=== PATIENT | female | born 1985 | race Caucasian/White ===

== ENCOUNTER 2018-02-22 17:02 | Inpatient (IN) | payer BC ==
[2018-02-22] MEDS ORDERED: OBEPIDURAL* 250 ML EPIDURAL ONE (20:11)
[2018-02-22 20:12] LABS: ABS Basophils 0.1 10^3/ul (0-0.2); ABS Eosinophils 0.1 10^3/ul (0-0.6); ABS Lymphocytes 1.6 10^3/ul (1.0-4.8); ABS Monocytes 0.7 10^3/ul (0-0.8); ABS Neutrophils 13.4 10^3/ul (1.5-7.7); ABS Nucleated RBC 0 10^3/ul; Eosinophil % 0.4 %; Hematocrit 34 % (35-47); Hemoglobin 11.3 g/dl (12.0-16.0); Lymphocyte % 10.3 %; Mean Corpuscular HGB Conc 34 g/dl (31-36); Mean Corpuscular Hemoglobin 30 pg (27-31); Mean Corpuscular Volume 90 fL (80-97); Mean Platelet Volume 8.1 fL (7.4-10.4); Nucleated Red Blood Cells % 0.1; Platelet Count 275 10^3/ul (150-450); Red Blood Count 3.75 10^6/ul (4.00-5.40); Red Cell Distribution Width 15 % (10.5-15); White Blood Count 15.9 10^3/ul (3.5-10.8)
[2018-02-22] MEDS ORDERED: fentaNYL* 50 MCG/ML 2 ML VIAL (100 MCG VIAL) IV SLOW PU ONE (20:14)
--- NOTE | 2018-02-22 21:31 | HP ---
General Information - Reason for Visit Contractions starting at 1100, slowly increasing in frequency and intensity. Pt thought she may have been leaking amniotic fluid, but ROM plus was negative. - General Information Maternal Age: 33 Grav: 1 Para: 0 SAB: 0 IEA: 0 Estimated Due Date: 02/21/18 Determined By: LMP Gestational Age in Weeks/Days: 40 03/25 Maternal Blood Type and Rh: O Positive - Results this Serology/RPR Result: Non-Reactive Rubella Result: Immune HBsAg Result: Negative HIV Result: Negative GBS Culture Result: Negative Past Medical History Delivery History: See Records - Primigravida Pertinent Past Medical History: See Records - depression/ anxiety, migraines, back pain Pertinent Past Surgical History: None Pertinent Family History: Non-Contributory - Antepartal Records Antepartal Records: Reviewed, Complicated by: - Age 33 at [facility], anxiety Review of Systems Constitutional: Uncomfortable CV Complaint: No Respiratory: Shortness of Breath: No Gastrointestinal: No Nausea/Vomiting, Normal Bowel Movement Genitourinary: Leaking Fluid - Pt thought she was leaking fluid but ROM plus was negative, No Dysuria, No Bleeding Musculoskeletal: No Epigastric Pain, Contractions Neurological: No Headache, No Visual Changes Movement: Normal Exam Allergies/Adverse Reactions: Allergies Sulfa (Sulfonamide Antibiotics) Allergy (Verified 02/22/18 17:39) Unknown Reaction Details Vital Signs 02/22/18 20:23 Respiratory 20 Rate Lab Values - Entire Visit: Laboratory Tests 02/22/18 02/22/18 02/22/18 17:19 20:00 20:00 WBC 15.9 H RBC 3.75 L Hgb 11.3 L Hct 34 L MCV 90 MCH 30 MCHC 34 RDW 15 Plt Count 275 MPV 8.1 Neut % (Auto) 84.3 Lymph % (Auto) 10.3 Donley % (Auto) 4.6 Eos % (Auto) 0.4 Baso % (Auto) 0.4 Absolute Neuts (auto) 13.4 H Absolute Lymphs (auto) 1.6 Absolute Monos (auto) 0.7 Absolute Eos (auto) 0.1 Absolute Basos (auto) 0.1 Absolute Nucleated RBC 0 Nucleated RBC % 0.1 Vag Amniotic Fld Detect Negative Blood Type O Positive Antibody Screen Negative - Measurements Height: 5 ft 5 in Weight: 87.543 kg Weight in lbs: 193.931923 Body Mass Index (BMI): 32.1 Pre- Weight: 65.771 kg Weight Gained This : 48 lbs and 0 ozs - Exam Breast: Breast Exam Deferred CVA: No CVA Tenderness Extremities: No Edema Heart: Normal Rhythm/Heart Sounds HEENT: No Significant Findings Lungs: Clear Bilaterally Rectal: Rectal Exam Deferred Reflexes: DTR 2+ Thyroid: No Thyromegaly - Abdominal Exam Abdomen Exam: Non-Tender - Ultrasound/Biophysical Profile Ultrasound Status: Not Done Targeted Exam Findings See L&D Outpatient Visit Provider Note for Findings: N/A Cervical Exam: 4cm - Pt was 3 on arrival, progressed to 4cm an hour later Effacement: 100% Station: -1 Presenting Part: Vertex Membrane Status: Intact Amniotic Fluid Evaluation: Negative ROM Plus Bleeding/Discharge: None EFM Findings - External Monitor Findings Baseline Heart Rate: 140 External Monitor Findings: No Pattern of Variable or Late Decelerations, Variability Moderate, Baseline Stable, Accelerations Absent - On arrival accels were present, at this time, post epidural, no accelerations noted Contractions: Regular Contraction Frequency: 3-4 minutes
[2018-02-22] MEDS ORDERED: EPHEDrine (Pressors)* 50 MG/ML VIAL IV PUSH PRN (21:50)
[2018-02-22] MEDS ORDERED: Sodium Citrate/Citric Acid* 15 ML UDC PO PRN (21:50)
[2018-02-22] MEDS ORDERED: Famotidine TAB* 20 MG PO PRN (21:50)
[2018-02-22] MEDS ORDERED: Phenylephrine IV* 40 MCG/ML 10 ML SYRINGE IV PUSH PRN (21:50)
[2018-02-22] MEDS ORDERED: OBEPIDURAL* 250 ML EPIDURAL SCH (22:00)
[2018-02-23] MEDS ORDERED: Acetaminophen TAB* 325 MG ONE (04:28)
[2018-02-23] MEDS ORDERED: Acetaminophen TAB* 325 MG PO ONE (04:32)
[2018-02-23 05:08] LABS: ABS Basophils 0 10^3/ul (0-0.2); ABS Eosinophils 0 10^3/ul (0-0.6); ABS Lymphocytes 0.7 10^3/ul (1.0-4.8); ABS Monocytes 0.6 10^3/ul (0-0.8); ABS Neutrophils 16.2 10^3/ul (1.5-7.7); ABS Nucleated RBC 0.1 10^3/ul; Eosinophil % 0 %; Hematocrit 34 % (35-47); Lymphocyte % 3.9 %; Mean Corpuscular HGB Conc 33 g/dl (31-36); Mean Corpuscular Hemoglobin 30 pg (27-31); Mean Corpuscular Volume 92 fL (80-97); Mean Platelet Volume 8.3 fL (7.4-10.4); Nucleated Red Blood Cells % 0.3; Platelet Count 276 10^3/ul (150-450); Red Blood Count 3.67 10^6/ul (4.00-5.40); Red Cell Distribution Width 15 % (10.5-15); White Blood Count 17.5 10^3/ul (3.5-10.8)
[2018-02-23] MEDS: Ampicillin ADVAN(*) 2 GM in NS 0.9% 100 ML* 100 ML IVPB SCH ×2 (05:08→13:59)
[2018-02-23] MEDS: Clindamycin 900 MG/D5W BAG(*) 900 MG/50 ML BAG IVPB SCH ×2 (05:26→14:29)
[2018-02-23] MEDS: NS 0.9% IVPB SCH (05:58)
[2018-02-23] MEDS: GENTAMICIN ADULT IVPB SCH (05:58)
[2018-02-23] MEDS ORDERED: Oxytocin in LR* 20 UNITS/1,000 ML BAG IVPB ONE (06:43)
[2018-02-23] MEDS ORDERED: Witch Hazel PAD* JAR ONE (08:59)
[2018-02-23] MEDS ORDERED: Dibucaine 1% 28.35 GM TUBE ONE (08:59)
[2018-02-23] MEDS ORDERED: Glycerin ADULT SUPP PR PRN (09:02)
[2018-02-23] MEDS ORDERED: Witch Hazel PAD* JAR TOPICAL PRN (09:02)
[2018-02-23] MEDS ORDERED: Acetaminophen TAB* 325 MG PO PRN (09:02)
--- NOTE | 2018-02-23 09:14 | PROCNOTE ---
[facility] OB: Delivery Note - Delivery A Date of : 02/23/18 Time of : 08:41 Sex: Male Score 1 Minute: 9 Score 5 Minutes: 9 Gestational Age in Weeks and Days at Delivery: 40 Weeks and 2 Days Delivery Method: Spontaneous Vaginal Labor: Spontaneous Did Patient attempt ?: N/A, No Previous Amniotic Fluid: Clear Estimated Blood Loss: 300 Anesthesia/Analgesia: CEI for Labor Delivered By: Debbie Gutierrez - Nursery Level of Nursery: Regular/Bedside - Perineum Perineal Injury: Perineal Laceration, 2nd Degree Perineal Repair: By Delivering Practioner - Events Delivery Events of Note: Pitocin During Labor, Protracted/Long Labor, Maternal Temperature during Labor, Pushed > 3 Hours - Risk for Falls Delivered OB Patient- Risk for Falls: CEI for Post-Op Pain, in use Fall Risk: Patient is at High Risk for Falls - Additional Delivery Notes Additional Delivery Notes: no nuchal cord no meconium placenta spontaneous/3VC/intact repair after !5 Lidocaine/ 2.0 vicryl X 2
[2018-02-23] MEDS ORDERED: Oxytocin in LR* 20 UNITS/1,000 ML BAG IVPB SCH (10:00)
[2018-02-23] MEDS: Ibuprofen TAB* 600 MG PO PRN ×2 (11:52→20:48)
[2018-02-23] MEDS: Docusate CAP* 100 MG PO SCH ×2 (13:58→20:48)
[2018-02-23] MEDS: Dibucaine 1% 28.35 GM TUBE PR PRN (16:07)
[2018-02-24] MEDS: Ibuprofen TAB* 600 MG PO PRN ×3 (04:40→20:38)
[2018-02-24 06:41] LABS: ABS Basophils 0 10^3/ul (0-0.2); ABS Eosinophils 0.1 10^3/ul (0-0.6); ABS Lymphocytes 2.1 10^3/ul (1.0-4.8); ABS Monocytes 0.8 10^3/ul (0-0.8); ABS Neutrophils 17.1 10^3/ul (1.5-7.7); ABS Nucleated RBC 0 10^3/ul; Eosinophil % 0.7 %; Hematocrit 28 % (35-47); Hemoglobin 9.5 g/dl (12.0-16.0); Lymphocyte % 10.6 %; Mean Corpuscular HGB Conc 34 g/dl (31-36); Mean Corpuscular Hemoglobin 31 pg (27-31); Mean Corpuscular Volume 91 fL (80-97); Nucleated Red Blood Cells % 0; Platelet Count 215 10^3/ul (150-450); Red Blood Count 3.08 10^6/ul (4.00-5.40); Red Cell Distribution Width 16 % (10.5-15); White Blood Count 20.3 10^3/ul (3.5-10.8)
[2018-02-24] MEDS: Dibucaine 1% 28.35 GM TUBE PR PRN (08:28)
[2018-02-24] MEDS: Docusate CAP* 100 MG PO SCH ×3 (08:28→20:38)
[2018-02-24] MEDS: Ferrous Gluconate TAB* 324 MG TAB PO SCH ×2 (08:29→20:38)
[2018-02-24] MEDS: NS 0.9% IVPB SCH (13:56)
[2018-02-24] MEDS: GENTAMICIN ADULT IVPB SCH (13:56)
--- NOTE | 2018-02-24 14:49 | PTEDU ---
Patient Name: NORBERTO PADGETT NORBERTO PADGETT selected video: Never Ever Shake a Baby to view on 02/24/2018 at 2:48:12 PM [id number]
--- NOTE | 2018-02-24 14:58 | PTEDU ---
Patient Name: NORBERTO PADGETT NORBERTO PADGETT selected video: Follow Me Mum: The Yung to Successful to view on 8 at 2:57:[address] [facility] [id number]
[2018-02-25] MEDS: Ferrous Gluconate TAB* 324 MG TAB PO SCH (08:09)
[2018-02-25] MEDS: Docusate CAP* 100 MG PO SCH (08:09)
[2018-02-25] MEDS: Ibuprofen TAB* 600 MG PO PRN (08:10)
--- NOTE | 2018-02-25 08:18 | PTEDU ---
Patient Name: NORBERTO PADGETT NORBERTO PADGETT selected video: BBOB: Nurturing Your Gorgeous &Growing Baby by to view on 02/25/2018 at 8:18:03 AM [id number]
[2018-02-25 08:25] VITALS: BP 116/75
--- NOTE | 2018-02-25 08:48 | PTEDU ---
Patient Name: NORBERTO PADGETT NORBERTO PADGETT selected video: BBOB: Bonding Through Infant Massage to view on 02/25/2018 at 8:46:53 A M from [id number]
== END 2018-02-25 10:26 | disposition home or self-care (01) | DRG 560 ==
LOC: MCHOBOUT 17:02 → MCHOB 19:44
PROVIDERS: ADMIT Midwife; ATTEND Obstetrics & Gynecology
PROC: 10E0XZZ Delivery of Products of Conception, External Approach (ICD-10-PCS; principal; 2018-02-23)
PROC: 0KQM0ZZ Repair Perineum Muscle, Open Approach (ICD-10-PCS; 2018-02-23)
DX: O48.0 Post-term pregnancy (principal); Z37.0 Single live birth; O70.1 Second degree perineal laceration during delivery; O99.344 Other mental disorders complicating childbirth; F41.8 Other specified anxiety disorders; O90.81 Anemia of the puerperium; D64.9 Anemia, unspecified; Z3A.40 40 weeks gestation of pregnancy
CPT/HCPCS: 36415; 84112; 85025; 86850; 86900; 86901; 87040; 87070; A9270-GY; J1580; J3010

== ENCOUNTER 2018-09-13 10:34 | Inpatient (IN) | payer BC ==
[2018-09-13] MEDS ORDERED: Albuterol/Ipratropium NEB.SOL* Albuterol 2.5 MG/Ipratropium 0.5 MG 3 ML INH ONE (10:43)
[2018-09-13] MEDS ORDERED: methylPREDNISolone 125 MG* 2 ML VIAL IV ONE (10:43)
--- NOTE | 2018-09-13 10:46 | ED ---
Shortness of Breath - HPI Summary HPI Summary: A 33 y/o female presents to [facility] with a chief complaint of SOB for the past 12 days. She denies any swelling of her legs but reports a cough. She says that she started an inhaler 3 days ago and is currently on Zithromax and ProAir. The patient notes that she is on medication for recurring back pain and anxiety. She denies any drug use or smoking. She denies a Hx of asthma. - History of Current Complaint Chief Complaint: EDShortnessOfBreath Time Seen by Provider: 09/13/18 10:38 Hx Obtained From: Patient Onset/Duration: Sudden Onset, Lasting Days, Still Present Timing: Constant Current Severity: Mild Dyspnea At: Rest Aggravating Factors: Nothing Alleviating Factors: Oxygen Associated Signs & Symptoms: Negative - fever, leg swelling, Cough ( Nonproductive) - Allergy/Home Medications Allergies/Adverse Reactions: Allergies Allergy/AdvReac Type Severity Reaction Status Date / Time Sulfa (Sulfonamide Allergy Unknown Verified 02/22/18 17:39 Antibiotics) Reaction Details Home Medications: Home Medications Albuterol Sulfate [Albuterol Sulfate Hfa] 2 puff INH Q4HR PRN 09/13/18 [History Confirmed 09/13/18] Cyclobenzaprine TAB* [Flexeril 10 MG TAB*] 10 mg PO TID PRN 09/13/18 [History Confirmed 09/13/18] diazePAM [Diazepam] 5 mg PO DAILY 09/13/18 [History Confirmed 09/13/18] oxyCODONE/Acetamin 5/325 MG* [Percocet 5/325 TAB*] 1 tab PO Q4HR PRN 09/13/18 [ History Confirmed 09/13/18] PMH/Surg Hx/FS Hx/Imm Hx Respiratory History: Denies: Hx Asthma Psychiatric History: Reports: Hx Anxiety, Hx Depression Infectious Disease History: No Infectious Disease History: Denies: Traveled Outside the [place] in Last 30 Days - Family History Known Family History: Negative: Blood Disorder - Social History Alcohol Use: None Substance Use Type: Reports: None Hx Tobacco Use: No Smoking Status (MU): Never Smoked Tobacco Review of Systems Negative: Fever Positive: Shortness Of Breath, Cough Negative: Edema All Other Systems Reviewed And Are Negative: Yes Physical Exam - Summary Physical Exam Summary: Appearance: Well appearing, no pain distress Skin: warm, dry, reflects adequate perfusion Head/face: normal Eyes: EOMI, BRYNN ENT: normal Neck: supple, non-tender Respiratory: Bilateral wheezing, poor air entry. Cardiovascular: RRR, pulses symmetrical Abdomen: non-tender, soft Musculoskeletal: normal, strength/ROM intact Neuro: normal, sensory motor intact, A&Ox3 Triage Information Reviewed: Yes Vital Signs On Initial Exam: Initial Vitals Temp Pulse Resp BP Pulse Ox 99.0 F 120 16 153/85 83 09/13/18 10:35 09/13/18 10:35 09/13/18 10:35 09/13/18 10:35 09/13/18 10:35 Vital Signs Reviewed: Yes Diagnostics - Vital Signs Vital Signs Temp Pulse Resp BP Pulse Ox 09/13/18 10:35 99.0 F 120 16 153/85 83 - Laboratory Result Diagrams: 09/13/18 11:41 09/13/18 11:41 Lab Statement: Any lab studies that have been ordered have been reviewed, and results considered in the medical decision making process. - Radiology CXR Radiology Interpretation Completed By: Radiologist Summary of Radiographic Findings: Stigmata of probable obstructive lung disease. No acute pulmonary or cardiac process evident. ED physician has reviewed this imaging report. - CT Chest/thorax CTA CT Interpretation Completed By: Radiologist Summary of CT Findings: No definite pulmonary embolus is noted. The aorta demonstrates no evidence of aortic dissection. Diffuse groundglass appearance of the lung maldonado of which etiology is unclear. These. likely represent areas of alveolar edema. ED physician has reviewed this imaging report. - EKG 10:52 Cardiac Rate: Tachycardia - 115 bpm EKG Rhythm: Sinus Tachycardia Summary of EKG Findings: EKG at 10:52 revealed sinus tachycardia at 115 bpm, no acute changes. Re-Evaluation - Re-Evaluation First Eval Re-Evaluation Time: 13:06 Change: Unchanged Comment: Pt is still tachycardic. We will send the patient for a CT to rule out PE. Course/Dx - Course Course Of Treatment: A 33 y/o female presents to [facility] with a chief complaint of SOB for the past 12 days. She denies any swelling of her legs but reports a cough. The physical exam revealed bilateral wheezing and poor air entry. EKG at 10:52 revealed sinus tachycardia at 115 bpm, no acute changes. In the ED course the patient was given Duoneb INH, Solu-medrol IV and Iohexol IV. Blood work and chemistries obtained. CXR impression: Stigmata of probable obstructive lung disease. No acute pulmonary or cardiac process evident. Chest/thorax CTA impression: No definite pulmonary embolus is noted. The aorta demonstrates no evidence of aortic dissection. Diffuse groundglass appearance of the lung maldonado of which etiology is unclear. These. likely represent areas of alveolar edema. Case discussed with Dr. De Jesus, Hospitalist, who will accept the patient for admission. The patient is agreeable with this plan. - Diagnoses Differential Diagnosis/HQI/PQRI: Positive: CHF, Pneumonia, Other - resp failure Provider Diagnoses: Pneumonia, Hypoxia, Respiratory failure - Physician Notifications Discussed Care of Patient With: Gigi De Jesus Time Discussed With Above Provider: 14:34 Instructed by Provider To: Admit As Inpatient - Critical Care Time Critical Care Time: 30-74 min - 60 mins Discharge - Sign-Out/Discharge Documenting (check all that apply): Patient Departure - admit Patient Received Moderate/Deep Sedation with Procedure: No - Discharge Plan Condition: Fair Disposition: ADMITTED TO [facility] Referrals: Samuel Boyd MD [Primary Care Provider] - - Billing Disposition and Condition Condition: FAIR Disposition: Admitted to [facility] - Attestation Statements Document Initiated by Christina: Yes Documenting Scribe: Fernando Onofre Provider For Whom Christina is Documenting (Include Credential): Rell Zhang MD Scribe Attestation: Fernando Castañeda scribed for Rell Zhang MD on 09/13/18 at 1456. Scribe Documentation Reviewed: Yes Provider Attestation: The documentation as recorded by the Fernando wolfe accurately reflects the service I personally performed and the decisions made by , Rell Zhang MD Status of Scribe Document: Viewed
[2018-09-13 11:54] LABS: ABS Eosinophils 0.3 10^3/ul (0-0.6); ABS Lymphocytes 2.2 10^3/ul (1.0-4.8); ABS Monocytes 0.7 10^3/ul (0-0.8); ABS Neutrophils 12.5 10^3/ul (1.5-7.7); Eosinophil % 2.1 %; Hematocrit 39 % (35-47); Hemoglobin 13.1 g/dL (12.0-16.0); Lymphocyte % 13.9 %; Mean Corpuscular HGB Conc 34 g/dL (31-36); Mean Corpuscular Hemoglobin 30 pg (27-31); Mean Corpuscular Volume 88 fL (80-97); Mean Platelet Volume 6.7 fL (7.4-10.4); Platelet Count 443 10^3/uL (150-450); Red Blood Count 4.41 10^6 /uL (3.70-4.87); Red Cell Distribution Width 14 % (10-15); White Blood Count 15.8 10^3/uL (3.5-10.8)
[2018-09-13 12:04] LABS: Activated Partial Thrombo Time 28.8 seconds (26.0-38.0); INR 1.09 (0.82-1.09)
[2018-09-13 12:18] LABS: Albumin 4.1 g/dL (3.2-5.2); Albumin/Globulin Ratio 1.1 (1-3); Calcium 9.7 mg/dL (8.6-10.3); EGFR African American 76.3 (>60); EGFR Non-African American 63.1 (>60); Globulin 3.9 g/dL (2-4); Potassium 3.9 mmol/L (3.5-5.0); Total Bilirubin 0.4 mg/dL (0.2-1.0)
[2018-09-13 12:20] LABS: Troponin I 0.01 ng/mL (<0.04)
[2018-09-13 12:24] LABS: HCG Pregnancy 0.95 mIU/mL
[2018-09-13] MEDS ORDERED: Iohexol 350* (CONTRAST) 500 ML MDV IV ONE (12:55)
[2018-09-13] MEDS ORDERED: Ondansetron INJ* 2 MG/ML VIAL IV PRN (14:50)
[2018-09-13] MEDS ORDERED: Acetaminophen TAB* 325 MG PO PRN (14:50)
[2018-09-13] MEDS ORDERED: Benzonatate CAP* 100 MG PO PRN (14:50)
[2018-09-13] MEDS ORDERED: Albuterol/Ipratropium NEB.SOL* Albuterol 2.5 MG/Ipratropium 0.5 MG 3 ML INH PRN (15:05)
[2018-09-13 15:37] LABS: C Reactive Protein 147.7 mg/L (<8.01)
[2018-09-13] MEDS: methylPREDNISolone 125 MG* 2 ML VIAL IV SCH ×2 (15:54→22:05)
[2018-09-13] MEDS: cefTRIAXone(*) 1 GM in NS 0.9% 50 ML* 50 ML IVPB SCH (15:54)
[2018-09-13] MEDS: oxyCODONE/Acetamin 5/325 MG* TAB PO PRN ×3 (15:55→23:52)
[2018-09-13] MEDS ORDERED: DOXYcycline IV* 100 MG in NS 0.9% 250 ML* 250 ML IVPB SCH (16:30)
--- NOTE | 2018-09-13 16:41 | HP ---
CC: Dr. Samuel Boyd; Dr. Jessica Delgado * ADMISSION HISTORY AND PHYSICAL: DATE OF ADMISSION: 09/13/18 PRIMARY CARE PROVIDER: Dr. Samuel Boyd. MY ATTENDING WHILE IN THE HOSPITAL: Dr. Gigi De Jesus.* (DICTATED BY VIVIAN CANSECO) CONSULTING GREEN END WORKER: Dr. Jessica Delgado. CHIEF COMPLAINT: Shortness of breath x12 days. HISTORY OF PRESENT ILLNESS: Ms. Rai is a 33-year-old female with past medical history significant only for anxiety and low back pain, who is 6 months with her first child, who presents to the emergency department with 12 days of progressively worsening shortness of breath, worse with exertion. She states that when it first started out, had other cold symptoms associated with it including runny nose and sore throat, but that these have resolved, but the shortness of breath has gotten worse. She states that her infant child and her boyfriend both had similar symptoms to the cold, which has resolved. The patient has been having 1 month of night sweats, but states that she always was relatively sweaty at night. She states the things have gotten worse and have gotten again progressively worse over the 12 days of her shortness of breath. The patient states that she was evaluated by her primary care doctor 3 days ago , had a chest x-ray which was read as normal, was started on ProAir inhaler and azithromycin which she notes no improvement with. The patient denies wheezing. The patient has no recent travel or prolonged immobilization. The patient had no swelling in her legs, no tenderness to the calves, no rashes, no changes in her vision, no changes to her eyes. The patient has never had anything like this before. The patient denies orthopnea. The patient has not had any urinary tract infections, no blood in her urine. No abdominal pain, diarrhea, constipation, blood in her stools. The patient in the emergency department was found to have an elevated white blood cell count, slightly elevated D-dimer, significantly low oxygen on her blood gas, and slightly elevated creatinine. She had a repeat chest x-ray, which appeared to be normal, but her chest/thorax CTA showed diffuse ground-glass opacities with no pulmonary embolism. The patient was tachycardic and was requiring Vapotherm in the emergency department to keep her saturations above 90%. The patient was tachypneic. We were asked to evaluate the patient for admission to the hospital. The patient is currently clearing out black mold from her bathroom, which has been present for a long period of time. PAST MEDICAL HISTORY: Back pain, anxiety. PAST SURGICAL HISTORY: None. MEDICATIONS: 1. Diazepam 5 mg p.o. daily as needed. 2. Percocet 1 tab p.o. q.4 hours as needed for back pain. 3. Albuterol sulfate 2 puffs inhalation q.4 hours as needed. 4. Cyclobenzaprine 10 mg p.o. t.i.d. as needed for back spasm. 5. Motrin 600 mg p.o. q.6 hours as needed. 6. vitamins 1 tab p.o. daily. ALLERGIES: SULFA. FAMILY HISTORY: The patient's mother has fibromyalgia. The patient's father has sarcoidosis. The patient has a brother with lupus, another brother with psoriasis, and a sister with thyroiditis. SOCIAL HISTORY: The patient never smoked, drank, or used illicit drugs. 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 The patient has a boyfriend and 1 child. REVIEW OF SYSTEMS: A 14-point review of systems was reviewed and is negative except as above in the HPI. PHYSICAL EXAMINATION GENERAL: The patient is a 33-year-old female, who appears stated age and sitting comfortably in bed, in no acute distress. VITAL SIGNS: At the time of evaluation, temperature 99.0, pulse rate 115, respiratory rate 29, oxygen saturation 97% on Vapotherm and 100% FiO2, blood pressure 123/84. HEENT: Head: Normocephalic, atraumatic. Sclerae anicteric. No conjunctival injection. Nasal mucosa moist. Oral mucosa moist. No pharyngeal erythema, discharge, or exudate. NECK: Supple, nontender. No lymphadenopathy. No carotid bruits auscultated. No JVD. RESPIRATORY: No velcro rales in the bilateral lower and middle lobes, absent in the upper lobes. No wheezes or rhonchi. Good air exchange bilaterally. CARDIAC: Tachycardic. No clicks, murmurs, gallops, or rubs. Pulses are 2+ in the bilateral dorsalis pedis, posterior tibialis, and radial areas. No bilateral lower extremity edema noted. NEURO: Cranial nerves II through XII intact. No focal deficits. Alert and oriented x3. PSYCHIATRIC: Pleasant and cooperative. SKIN: Clean, dry, and intact. No rash. Negative for erythema nodosum. No heliotrope rash. No malar rash. DIAGNOSTIC STUDIES/LAB DATA: White blood cell count 15.8, hemoglobin 13.1, platelet count 443. INR 1.09. PTT 28.8. D-dimer 249. ABG shows a pH of 7.47 , pCO2 of 32, pO2 of 66, bicarbonate 25, oxygen saturation 94%. Sodium 138, potassium 3.9, chloride 104, carbon dioxide 22, anion gap 12, BUN 13, creatinine 1.0, glucose 125, lactic acid 1.1, calcium 9.7. Bilirubin 0.4, AST 25, ALT 12, alkaline phosphatase 104. Troponin I 0.01. BNP 51. Protein 8.0, albumin 4.1, globulin 3.9. Beta hCG 0.95. EKG shows sinus tachycardia, normal axis. No ST segment elevation or depression. No hypertrophy or enlargement. Rate of 115, QTc of 461. No other significant abnormalities. Chest x-ray read as stigmata of probable obstructive lung disease. No acute pulmonary or cardiac process evident. Chest/thorax CTA read as no definite pulmonary embolus noted. No evidence of aortic dissection. Diffuse ground-glass opacities of the lung maldonado of which the etiology is unclear. These likely represent areas of alveolar edema. ASSESSMENT AND PLAN: Impression: Ms. Rai is a 33-year-old female with no pertinent past medical history, who presents to the emergency department with 12 days of shortness of breath and at least 3 days of hypoxia. The patient in the emergency department was found to be hypoxic to the 70s on room air requiring Vapotherm. The patient will be admitted to the hospital for treatment of her acute hypoxic respiratory failure and evaluation for underlying cause. 1. Acute hypoxic respiratory failure. Cause of the patient's respiratory failure is unclear at this time. The patient has not had fevers, but does have a white count and patchy ground-glass opacities. The patient has been having a month of night sweats. The patient has been cleaning black mold from her bathroom. Hypersensitivity pneumonitis is possible. Atypical pneumonia is also on the differential, though the patient has not improved with azithromycin. Viral pneumonia is also possible as her son and boyfriend also have same symptoms. The patient received steroids, inhalers in the emergency department with no significant improvement. The patient will be admitted to the ICU and continued on Vapotherm. The patient will be continued on high-dose steroids. The patient will be started on ceftriaxone and doxycycline for community- acquired pneumonia coverage including atypical coverage. The patient will be monitored closely for fevers. The patient will be seen in consultation by Dr. Jessica Delgado of Pulmonology. The patient had lab tests sent out for possible causes of autoimmune interstitial lung disease. The patient is a full code. I will obtain an echocardiogram, though the patient has negative BNP. Evaluation for pulmonary hypertension could be useful in evaluation of lung disease and any other co-affected organs. 2. Anxiety, back pain. Continue the patient's home regimen. 3. DVT prophylaxis: The patient is a moderate risk, though the patient will be placed on heparin subcu. 4. FEN: The patient will have regular unrestricted diet and fluids at 100 mL an hour. TIME SPENT: Approximately 60 minutes was spent on the admission of this patient , 30 of which was spent [id number] with the patient obtaining history and physical and discussing treatment plan. This plan was discussed with my attending, Dr. Gigi De Jesus, and he is in agreement. VIVIAN CANSEOC [id number]/CPS #: [id number] MTDD
--- NOTE | 2018-09-13 17:47 | CONS ---
PULMONARY CONSULTATION REPORT: DATE OF CONSULT: 09/13/18 CONSULTATION REQUESTED BY: VIVIAN Christian REASON FOR CONSULTATION: Hypoxemic respiratory failure. HISTORY OF PRESENT ILLNESS: The patient is a 33-year-old female with history of chronic back pain, on opiates. The patient presents for evaluation of worsening shortness of breath. Her symptoms initially started 12 days ago. She had sick contacts with her son who goes to daycare, being ill with respiratory issues. She started having cold like symptoms. Symptoms continued to worse and she started having difficulty breathing also. She was seen by a primary care physician 3 days ago, was started on Zithromax and was also given inhaler. The patient also reports that she was noted to be hypoxemic during that visit. She had a chest x-ray ordered by her primary care physician, which did not reveal any acute abnormality. The patient, however, continued to have worsening shortness of breath, then she followed up with her primary care again today and was noted to be significantly hypoxemic and therefore was sent in to the emergency room for further evaluation. The patient was noted to be significantly hypoxemic in the ED. Oxygen saturation at 83% when she came in. She was initiated on high-flow oxygen. The patient denies swelling in her legs. She does report a cough productive of yellow phlegm for the past few days. Further evaluation in the emergency room included laboratory workup that showed elevated white count at 15.8 with left shift. Blood gas analysis revealed respiratory alkalosis with pO2 of 66 and O2 sat of 94 possibly while on oxygen. The patient noted to have slightly elevated anion gap at 12 and creatinine was slightly elevated at 1. Her glucose was also mildly elevated. CRP was significantly elevated at 147. testing was negative. Further evaluation included also a CTA of the chest. I have personally reviewed CTA of the chest - the patient with evidence of diffuse ground glass opacities diffusely filling up the lung bilaterally with some sparing into subpleural location. No significant mediastinal or hilar adenopathy noted. No evidence of filling defects noted in the pulmonary artery. No fibrosis or emphysematous changes noted. PAST MEDICAL HISTORY: Back pain, anxiety and depression. MEDICATIONS AT HOME: 1. Flexeril. 2. Diazepam. 3. Oxycodone. 4. Albuterol started recently. FAMILY HISTORY: Significant for multiple autoimmune disorders in the family. Denies personal or family history of asthma. SOCIAL HISTORY: Nonsmoker. No alcohol or drug abuse. REVIEW OF SYSTEMS: All 14 systems reviewed and as per HPI. PHYSICAL EXAM: The patient in bed, in no apparent distress, is on high flow, slightly anxious. HEENT: Pupils equal, reactive to light. Mucous membranes moist. No JVD. Lungs: No accessory muscle usage. Scattered rhonchi in upper lung zones posteriorly and crackles bilaterally at the bases. Cardiovascular: S1, S2 present, slightly tachycardic. Abdomen: Soft, nontender, nondistended. Bowel sounds present. Extremities: Normal range of motion. Neuro: Alert, awake, oriented x3. No focal deficits. Vital Signs: Temperature 99, pulse 105 beats per minute, respiratory rate 21, O2 sat 100% on 30 L on 100% FiO2. DIAGNOSTIC STUDIES/LAB DATA: Chest x-ray. CTA of the chest as described above in HPI. Labs show WBC count 15.8, hemoglobin 13.1, hematocrit of 39, platelet count 443 with left shift. D-dimer was slightly elevated at 249. Blood gas analysis showed pH of 7.47, pCO2 of 32, pO2 of 66, bicarb of 25 with O2 sat 94.4. Sodium 138, potassium 3.9, chloride 104, bicarb 22, BUN 13, creatinine 1 with CRP of 147. Lactate within normal limits. BNP 51. IMPRESSION AND RECOMMENDATIONS: 33-year-old female with no prior history of pulmonary issues other than pneumonia when she was a kid, presented with worsening shortness of breath. The patient reports recent sick contact- viral symptoms in her son. The patient also reports that she is having some remediation measures being taken care of at home for mold which was noticed recently in their house. Onset of symptoms do correlate with this issue that has been ongoing. Differentials given this significant ground glass opacity bilaterally and acute onset of symptoms with hypoxemic respiratory failure include infectious versus inflammatory, less likely to be neoplastic. Given recent sick contact, viral pneumonia is the possibility, atypical pneumonia could be considered. Inflammatory etiology is more reasonable consideration given exposure to mold and onset of symptoms since. Would suspect hypersensitivity pneumonitis as the possibility given the ground-glass opacities. The patient does report history of recurrent sinus infections without any history of allergies. Unclear if sinus infections are secondary to ongoing mold exposure and upper airway symptoms or if autoimmune disorder is underlying etiology. Eze's, Churg-Vita polyangiitis can also have this kind of appearance in the lungs. Her creatinine is elevated even though modestly elevated; therefore , will send serological workup to rule out this autoimmune conditions with pulmonary or renal involvement. Will initiate the patient on empiric antibiotics. Would also recommend starting the patient on Solu-Medrol close to 2 g daily in divided doses. The patient undergoing echocardiogram for evaluation of any cardiac etiology, though I suspect that is less likely given a normal BNP. She is having hypoxemic respiratory failure secondary to V/Q mismatch from significant ground glass opacities seen in her lungs. Titrate FiO2 as tolerated. Hypersensitivity pneumonitis should resolve quickly with steroids and would continue with the taper. Will also send hypersensitivity panel. Thank you for allowing me to participate in the care of your patient. Will follow up with you. Above recommendations were discussed with VIVIAN Christian. [id number]/[facility] #: [id number] JEANNETTE
--- NOTE | 2018-09-13 18:18 | ECHO ---
*[facility]* [place] [address] Fax #: [phone] Transthoracic Echocardiogram Patient: Sania Diaz : 1985 Study Date: 09/13/2018 Age: 33 Gender: F HR: 107 bpm Height: 65 in /165.1 cm BSA: 1.79 m^2 Weight: 157.7 lb /71.7 kg BMI: 26.3 kg/m^2 *Rockboard Lather: * Alea Birmingham RDCS RN *Referring Physician: * Walter Tran *Reading Physician: * Sade Mcarthur MD Indications: SOB. History: Anxiety, depression. Conclusions Summary: 1. Left ventricle: The cavity size is normal. Wall thickness is normal. Systolic function is normal. The estimated ejection fraction is 55-60%. 2. Mitral valve: There is trace regurgitation. 3. Aortic valve: The findings are consistent with mild stenosis. There is mild to moderate regurgitation. The peak systolic velocity is 2.05 m/sec. The mean systolic gradient is 10.0 mm Hg. The peak systolic gradient is 17.0 mm Hg. The LVOT to aortic valve VTI ratio is 0.62. The valve area by the velocity-time integral method is 2.00 cm^2. The valve area by the peak velocity method is 1.90 cm^2. 4. Tricuspid valve: There is trace to mild regurgitation. 5. Pulmonic valve: There is mild regurgitation. 6. No previous echocardiogram available. Study data: Transthoracic echocardiogram. Procedure: Transthoracic echocardiography was performed. Image quality was fair. Complete 2D, spectral Doppler, and color flow Doppler. Patient status: Inpatient. Patient room number: ED 16. Rhythm: Tachycardia. Findings Left ventricle: The cavity size is normal. Wall thickness is normal. Systolic function is normal. The estimated ejection fraction is 55-60%. Wall motion is normal; there are no regional wall motion abnormalities. There is no consistent Doppler evidence of clinically significant diastolic dysfunction. Right ventricle: The cavity size is normal. Systolic function is normal. Left atrium: The atrium is normal in size. Right atrium: The atrium is normal in size. Mitral valve: The leaflets are mildly thickened. There is no evidence of stenosis. There is trace regurgitation. Aortic valve: The valve is trileaflet. The leaflets are mildly thickened. The findings are consistent with mild stenosis. There is mild to moderate regurgitation. Tricuspid valve: The valve is structurally normal. There is no evidence of stenosis. There is trace to mild regurgitation. Pulmonic valve: The valve is structurally normal. There is no evidence of stenosis. There is mild regurgitation. Aorta: Aortic root: The aortic root is not dilated. Ascending aorta: The ascending aorta is not dilated. Aortic arch: The aortic arch is not dilated. Pericardium: There is no significant pericardial effusion. Pulmonary arteries: The main pulmonary artery is normal-sized. Systolic pressure can not be accurately estimated. Systemic veins: Inferior vena cava: The vessel is normal in size. The respirophasic diameter changes are in the normal range (>= 50%). Measurements Left ventricle Value Ref Right atrium continued Value Ref ONEIL, LAX 3.9 cm 3.8 - SI dim/bsa, ES, 2.4 cm/m^2 1.9 - 5.2 A4C 3.1 ESD, LAX 2.4 cm 2.2 - Estimated RAP 3 mm Hg -------- 3.5 FS, LAX 40 % 27 - 45 Aortic valve Value Ref PW, ED 0.9 cm 0.6 - Jayda diam, ED 2.1 cm -------- 0.9 Peak v, S 2.05 m/sec -------- IVS/PW, ED 0.97 -------- VTI, S 32.4 cm -------- E', lat jayda, TDI 13.6 cm/sec >=10.0 Mean grad, S 10.0 mm Hg - ------- E/e', lat jayda, TDI 5 -------- Peak grad, S 17.0 mm Hg ---- ---- E', med jayda, TDI 9.7 cm/sec >=7.0 LVOT/AV, VTI ratio 0.62 - ------- E/e', med jayda, TDI 8 -------- TASHA, VTI 2.00 cm^2 ---- ---- E', avg, TDI 11.7 cm/sec -------- TASHA, Vmax 1.90 cm^2 ---- ---- E/e', avg, TDI 6 <=14 AR peak v 4.25 m/sec - ------- AR PHT 420 ms -------- LVOT Value Ref AR peak grad 72 mm Hg -------- Diam, S 2.00 cm -------- Area 3.1 cm^2 -------- Mitral valve Value Ref Peak sami, S 1.23 m/sec -------- Peak E 0.73 m/sec -------- VTI, S 20.1 cm -------- Peak A 0.83 m/sec -------- Peak grad, S 6 mm Hg -------- Decel time 306 ms -------- Mean grad, S 3 mm Hg -------- Peak grad, D 2.1 mm Hg -------- SV 63 ml -------- Peak E/A ratio 0.9 -------- SV/bsa 35 ml/m^2 -------- Pulmonic valve Value Ref Ventricular septum Value Ref Peak v, S 1.09 m/sec -------- IVS, ED 0.9 cm 0.6 - Peak grad, S 5.0 mm Hg -------- 0.9 Aortic root Value Ref Right ventricle Value Ref Root diam 3.0 cm <3.5 ONEIL, LAX 2.8 cm -------- ONEIL minor ax, A4C 3.0 cm 1.9 - Ascending aorta Value Ref mid 3.5 AAo AP diam, S 3.2 cm -------- Left atrium Value Ref Decending aorta Value Ref ML dim, A4C 3.3 cm -------- Neo peak sami 0.91 m/sec -------- SI dim, A4C 3.9 cm -------- Vol/bsa, ES, 1-p 14 ml/m^2 11 - 40 Inferior vena cava Value Ref A4C Diam 1.5 cm -------- Vol/bsa, ES, A/L 17 ml/m^2 16 - 34 Right atrium Value Ref SI dim, ES 4.3 cm 3.4 - 5.3 ML dim, ES, A4C 3.1 cm 2.6 - 4.4 SI dim, ES, A4C 4.3 cm 3.4 - 5.3 Legend: (L) and (H) chantel values outside specified reference range. Prepared and electronically signed by Sade Mcarthur MD 09/13/2018 18:18
[2018-09-13] MEDS: DOXYcycline IV* 100 MG in NS 0.9% 250 ML* 250 ML IVPB SCH (18:28)
[2018-09-13 18:31] LABS: Erythrocyte Sed Rate 65 mm/Hr (0-19)
[2018-09-13 20:04] LABS: Urine Appearance Clear; Urine Bilirubin Negative (Negative); Urine Blood Negative (Negative); Urine Color Yellow; Urine Glucose 3+(>=500 mg/dL) (Negative); Urine Ketones 1+ (Negative); Urine Nitrite Negative (Negative); Urine Protein Negative (Negative); Urine Specific Gravity 1.026 (1.010-1.030); Urine Urobilinogen Negative (Negative)
[2018-09-13] MEDS: guaiFENesin ER TAB 600 MG PO SCH (22:05)
[2018-09-13] MEDS: Heparin VIAL(*) 5000 UNITS/ML VIAL (FIVE THOUSAND) SUBCUT SCH (22:05)
[2018-09-13] MEDS: Cyclobenzaprine TAB* 10 MG PO PRN (23:52)
[2018-09-14] MEDS: NS 0.9% 1000 ML** 1,000 ML IV SCH ×2 (03:09→15:18)
[2018-09-14] MEDS: oxyCODONE/Acetamin 5/325 MG* TAB PO PRN ×5 (04:42→22:11)
[2018-09-14] MEDS: DOXYcycline IV* 100 MG in NS 0.9% 250 ML* 250 ML IVPB SCH (06:47)
[2018-09-14] MEDS: methylPREDNISolone 125 MG* 2 ML VIAL IV SCH ×2 (06:48→14:32)
[2018-09-14] MEDS: Heparin VIAL(*) 5000 UNITS/ML VIAL (FIVE THOUSAND) SUBCUT SCH ×2 (06:48→13:17)
[2018-09-14 07:50] LABS: ABS Monocytes 0.5 10^3/ul (0-0.8); ABS Neutrophils 15.2 10^3/ul (1.5-7.7); Hematocrit 36 % (35-47); Hemoglobin 11.8 g/dL (12.0-16.0); Lymphocyte % 6.2 %; Mean Corpuscular HGB Conc 33 g/dL (31-36); Mean Corpuscular Hemoglobin 29 pg (27-31); Mean Corpuscular Volume 89 fL (80-97); Platelet Count 391 10^3/uL (150-450); Red Blood Count 4.02 10^6 /uL (3.70-4.87); Red Cell Distribution Width 14 % (10-15); White Blood Count 16.8 10^3/uL (3.5-10.8)
[2018-09-14 08:05] LABS: BUN/Creatinine Ratio 19.7 (8-20); C Reactive Protein 118.29 mg/L (<8.01); Calcium 9.1 mg/dL (8.6-10.3); EGFR African American 123.3 (>60); EGFR Non-African American 101.9 (>60); Potassium 4.5 mmol/L (3.5-5.0)
[2018-09-14] MEDS: guaiFENesin ER TAB 600 MG PO SCH (08:19)
[2018-09-14] MEDS: Prenatal Vitamin TAB PO SCH (08:19)
[2018-09-14] MEDS: Diazepam TAB(*) 5 MG PO SCH (08:20)
--- NOTE | 2018-09-14 15:31 | PN ---
Subjective Date of Service: 09/14/18 Interval History: Admitted yesterday and started on CTX/doxy. Also started on IV steroids. Pt feels significantly better today and has transitioned from vapotherm to 2L NC. She still has SaO2 in 80s when on RA. Wondering if she could be discharged tomorrow AM to make it to her child's christening by 10am. Discussed that needing oxygen and IV meds would hold up discharge. Pt states christening could also happen in chap in hospital. Objective Active Medications: Acetaminophen (Tylenol Tab*) 650 mg PO Q6H PRN PRN Reason: FEVER/PAIN Albuterol/Ipratropium (Duoneb (Albuterol 2.5 Mg/Ipratropium 0.5 Mg)) 1 neb INH Q4H PRN PRN Reason: SOB/WHEEZING Benzonatate (Tessalon Cap*) 100 mg PO BID PRN PRN Reason: COUGH Cyclobenzaprine HCl (Flexeril Tab*) 10 mg PO TID PRN PRN Reason: SPASMS Last Admin: 09/13/18 23:52 Dose: 10 mg Diazepam (Valium Tab(*)) 5 mg PO DAILY [facility] Last Admin: 09/14/18 08:20 Dose: 5 mg Ceftriaxone Sodium 1 gm/ (Sodium Chloride) 50 mls @ 200 mls/hr IVPB Q24H FRANCIS Last Admin: 09/13/18 15:54 Dose: 200 mls/hr Doxycycline Hyclate 100 mg/ (Sodium Chloride) 250 mls @ 250 mls/hr IVPB 0630, 1830 [facility] Last Admin: 09/14/18 06:47 Dose: 250 mls/hr Methylprednisolone Sodium Succinate (Solu-Medrol 125mg *) 60 mg IV Q8H [facility] Last Admin: 09/14/18 14:32 Dose: 60 mg Multivitamins ( Vitamin Tab*) 1 tab PO DAILY [facility] Last Admin: 09/14/18 08:19 Dose: 1 tab Oxycodone/Acetaminophen (Percocet 5/325 Tab*) 1 tab PO Q4HR PRN PRN Reason: PAIN Last Admin: 09/14/18 13:05 Dose: 1 tab Vital Signs - 8 hr 09/14/18 09/14/18 09/14/18 08:00 08:20 08:47 Temperature Pulse Rate 85 Respiratory 13 20 18 Rate Blood Pressure 110/87 (mmHg) O2 Sat by Pulse 99 Oximetry 09/14/18 09/14/18 09/14/18 08:52 09:00 09:02 Temperature 98.2 F Pulse Rate 107 108 Respiratory 23 30 Rate Blood Pressure (mmHg) O2 Sat by Pulse 94 94 Oximetry 09/14/18 09/14/18 09/14/18 10:00 10:21 11:00 Temperature Pulse Rate 113 97 105 Respiratory 19 18 Rate Blood Pressure 123/67 127/75 (mmHg) O2 Sat by Pulse 94 96 Oximetry 09/14/18 09/14/18 09/14/18 12:00 13:00 13:05 Temperature 98.6 F Pulse Rate 99 106 Respiratory 20 17 22 Rate Blood Pressure 116/67 116/67 (mmHg) O2 Sat by Pulse 95 93 Oximetry 09/14/18 09/14/18 13:09 14:00 Temperature Pulse Rate 113 Respiratory 16 16 Rate Blood Pressure (mmHg) O2 Sat by Pulse 92 Oximetry Oxygen Devices in Use Now: Nasal Cannula Appearance: pleasant well-appearing woman in NAD; speaking in full sentences; no increased WOB Ears/Nose/Mouth/Throat: Clear Oropharnyx, Mucous Membranes Moist Neck: NL Appearance and Movements; NL JVP, Trachea Midline Respiratory: Symmetrical Chest Expansion and Respiratory Effort, - - crakles as bases Cardiovascular: RRR Abdominal: NL Sounds; No Tenderness; No Distention Extremities: No Edema Skin: No Rash or Ulcers Neurological: Alert and Oriented x 3 Result Diagrams: 09/14/18 07:30 09/14/18 07:30 Microbiology and Other Data: Microbiology 09/13/18 11:41 Aerobic Blood Culture - Preliminary Blood Venous No Growth Day 1 Anaerobic Blood Culture - Preliminary No Growth Day 1 09/13/18 11:35 Aerobic Blood Culture - Preliminary Blood Venous No Growth Day 1 Anaerobic Blood Culture - Preliminary No Growth Day 1 09/14/18 09:43 Gram Stain - Final Sputum 09/13/18 18:00 Nasal Screen MRSA (PCR) - Final Nasal Mrsa Not Detected 09/13/18 19:40 Legionella Urinary Antigen - Final Urine Negative Legionella Antigen Streptococcus pneumoniae Ag Screen - Final Negative S. pneumo Antigen Assess/Plan/Problems-Billing Assessment: 33W with anxiety/depression and chronic back pain who presents with progressive shortness of breath, found with hypoxemic respiratory failure and CT with ground glass opacities. - Patient Problems (1) Hypoxia Comment: Unclear etiology: Inflammatory (most likely) vs infectious. Pt with significant family history of autoimmune disease (father with sarcoid, brother with psoriasis, another brother with lupus). Leukocytosis without left shift. Resp alk on abg. CLAUDIA resolved. CRP decreased 147.7 -> 118. RF normal. TTE with mild and mild-to-mod aortic regurg. - cont antibiotics (09/13 - ) but will switch CTX/doxy from IV to equivalent PO - will switch IV to PO steroids - f/u remaining labs (CHAVEZ, hypersensitivity panel, procal, aspergillus IgE, ANCA , etc) (2) Back pain Comment: cont home cyclobenzaprine and Percocets prn (3) Anxiety and depression Comment: cont home Valium (unclear why not on other firstline agents) (4) DVT prophylaxis Current Visit: Yes Status: Acute Code(s): Z29.9 - ENCOUNTER FOR PROPHYLACTIC MEASURES, UNSPECIFIED SNOMED Code(s): 247642836 Comment: pt refuses
[2018-09-14] MEDS: cefTRIAXone(*) 1 GM in NS 0.9% 50 ML* 50 ML IVPB SCH (16:04)
[2018-09-14] MEDS: DOXYcycline CAP(*) 100 MG PO SCH (21:14)
[2018-09-14] MEDS: Cyclobenzaprine TAB* 10 MG PO PRN (22:11)
[2018-09-15] MEDS ORDERED: predniSONE TAB* 20 MG PO SCH (06:00)
[2018-09-15] MEDS ORDERED: Cefdinir cap* 300 MG CAP PO SCH (06:00)
[2018-09-15] MEDS: oxyCODONE/Acetamin 5/325 MG* TAB PO PRN (06:49)
[2018-09-15] MEDS: Diazepam TAB(*) 5 MG PO SCH (07:49)
[2018-09-15] MEDS: DOXYcycline CAP(*) 100 MG PO SCH (07:50)
[2018-09-15 08:41] VITALS: BP 113/79
[2018-09-15] MEDS: Prenatal Vitamin TAB PO SCH (08:58)
--- NOTE | 2018-09-15 20:36 | DS ---
CC: Dr. Boyd; Dr. Delgado * DISCHARGE SUMMARY: DATE OF ADMISSION: 09/13/18 DATE OF DISCHARGE: 09/15/18 ATTENDING PHYSICIAN: Dr. Lyn *(dictated by VIVIAN Adams). PRIMARY CARE PROVIDER: Dr. Boyd. CONSULTING ATTENDING AMBULATORY CARE: Dr. Delgado. PRIMARY DIAGNOSIS: Acute respiratory failure of unknown etiology, possibly hypersensitivity pneumonitis or autoimmune related. SECONDARY DIAGNOSES: 1. Chronic back pain. 2. Anxiety. STUDIES WHILE IN THE HOSPITAL: Transthoracic echocardiogram, 09/13/18: Left ventricular cavity size is normal. Systolic function is normal. Ejection fraction 55% to 60%. Trace regurgitation of mitral valve. Mild stenosis of aortic valve. Trace to mild regurgitation of tricuspid valve. Mild regurgitation of pulmonic valve. No pericardial effusion. Chest x-ray on 09/13/18: Stigmata of probable obstructive lung disease. No acute pulmonary or cardiac process evident. Chest/thorax CT angiogram on 09/13/18: No definite pulmonary embolus is noted. The aorta demonstrates no evidence of aortic dissection. Diffuse ground-glass appearance to the lung maldonado of which etiology is unclear. These likely represent areas of valvular edema. PERTINENT LAB DATA: White blood cell count 15.8 on date of admission. ABG; pH 7.47, pCO2 32, pO2 66, bicarb 25, O2 sat 94.4%. CRP 147.70. Rheumatoid factor 14. HISTORY OF PRESENT ILLNESS/HOSPITAL COURSE: Sania Rai is a 33-year-old white female with past medical history significant for chronic back pain and anxiety, who presented to the emergency department on 09/13/18 due to shortness of breath x12 days in the setting of recent URI symptoms. Please see admitting H and P dictated by VIVIAN Christian, for further details. During her hospital stay, she did require Vapotherm in the emergency department to keep her saturations above 90%. She was admitted to be ICU to be continued on Vapotherm, but did later improve and was ultimately saturating well with ambulation well above 90% oxygen saturations on room air after receiving IV Solu -Medrol and later switched to p.o. prednisone. She did receive ceftriaxone and doxycycline to cover for possible atypical pneumonia. Dr. Delgado with the pulmonology service was suspicious for a possible viral pneumonia given illness of her child and partner; however, she was also suspicious of hypersensitivity pneumonitis given the ground-glass opacities and exposure to mold in her home. Given the extensive family history of autoimmune disorder, she was also concerned for an autoimmune etiology. Cardiac etiology was ruled out with essentially normal echocardiogram. By the time of discharge, she was far improved and had no complaints of shortness of breath. No chest pain, difficulty breathing, dizziness, lightheadedness, fever, chills. Urine legionella and Strep pneumo antigens were negative and blood cultures were negative by the day of discharge. PHYSICAL EXAMINATION: A young white female, sitting upright in hospital bed, appearing in no acute distress. Head: Normocephalic, atraumatic. Eyes: PERRL. Sclerae anicteric. ENT: Mucous membranes moist. Neck: Supple without JVD. Cardio: Regular rate and rhythm without murmurs, rubs, or gallops. Lungs : Clear to auscultation throughout. Symmetrical chest expansion with respirations. Abdomen: Soft, nontender, nondistended. Extremities: No clubbing, cyanosis, or edema. Neuro: The patient is alert and oriented x3. No focal deficits. DISCHARGE PLAN: Continued home medications: 1. Flexeril 10 mg p.o. t.i.d. p.r.n. 2. Albuterol 2 puffs inhaled q.4 hours p.r.n. shortness of breath or wheezing. 3. Percocet 5/325 one tab p.o. q.4 hours p.r.n. pain. 4. Diazepam 5 mg p.o. daily. 5. vitamins 1 tab p.o. daily. 6. Ibuprofen 600 mg p.o. q.6 hours p.r.n. pain. New discharge medications: 1. Prednisone 40 mg x3 days, then 30 mg x3 days, then 20 mg x3 days, then 10 mg x3 days, then discontinue. 2. Doxycycline 100 mg p.o. b.i.d. x3 days. 3. Cefdinir 300 mg p.o. b.i.d. x3 days. 4. Tessalon 100 mg p.o. b.i.d. p.r.n. cough. DIET: The patient may return to regular diet. ACTIVITY: The patient may return to her regular activity as tolerated. DISCHARGE INSTRUCTIONS: The patient is advised to follow up with Dr. Delgado's office and she was provided with phone number to call her office. She is advised to follow up with her primary care provider within a week to 10 days. At the time of followup, her respiratory status should be evaluated. Additionally, the labs for which we have not received the results should be followed by her primary care provider. These labs include angiotensin- converting enzyme, antinuclear antibody, ANCA panel for vasculitis, scleroderma antibody, aspergillus antigen, cyclic citrullinated peptide IgG, hypersensitivity pneumonitis panel, Aspergillus fumigatus IgE, Aspergillus niger allergen, procalcitonin S. The patient was advised to return to the emergency department if she experiences new or worsening symptoms, chest pain, difficulty breathing, fever, or chills. She is otherwise to continue her home medications. CONDITION ON DISCHARGE: Stable. DISPOSITION: Home. TIME SPENT: Approximately 35 minutes was spent on this discharge, approximately half this time was spent at bedside. VIVIAN ADAMS [id number]/[facility] #: [id number] MTDMirian
[2018-09-16 18:58] LABS: Cyclic Citrullinated Pept IgG <15.6 U
[2018-09-16 20:28] LABS: Micropolyspora faeni IgG Ab 2.4 mg/L (<=13.2); Thermoactinomyces vulgaris IgG 4.2 mg/L (<=23.9)
[2018-09-17 12:41] LABS: Aspergillus Fumigatus IgE <0.35 kU/L; Aspergillus niger Allergen <0.35 kU/L
== END 2018-09-15 09:45 | disposition home or self-care (01) | DRG 142 ==
LOC: ED 10:34 → ICU 14:50 → MED 09-14 13:13
PROVIDERS: ADMIT Internal Medicine; ATTEND Internal Medicine
DX: J67.9 Hypersensitivity pneumonitis due to unspecified organic dust (principal); J96.01 Acute respiratory failure with hypoxia; F41.9 Anxiety disorder, unspecified; G89.29 Other chronic pain; M54.9 Dorsalgia, unspecified; I08.3 Combined rheumatic disorders of mitral, aortic and tricuspid valves; F32.9 Major depressive disorder, single episode, unspecified; Z88.2 Allergy status to sulfonamides; Z83.2 Family history of diseases of the blood and blood-forming organs and certain disorders involving the immune mechanism; Z83.49 Family history of other endocrine, nutritional and metabolic diseases
CPT/HCPCS: 36415; 71045; 71275; 80048; 80053; 81003; 82164; 82550; 82803; 83516; 83605; 83880; 84145; 84484; 84702; 85025; 85379; 85610; 85652; 85730; 86003; 86038; 86140; 86200; 86235; 86431; 86606; 86609; 87040; 87070; 87205; 87305; 87641; 87899; 93005; 93306; 99285; A9270-GY; J0696; J2930; J7512; Q9967

== ENCOUNTER 2018-09-28 19:38 | Emergency (ER) | payer BC ==
--- NOTE | 2018-09-28 19:54 | ED ---
Shortness of Breath - HPI Summary HPI Summary: This patient is a 33 year old F presenting to ED with a chief complaint of SOB with exertion since four days ago worsening last night. Patient was seen here a couple weeks ago for respiratory failure and PNA. She was given steroids, but she only had 3 days worth of a prescription. Last night patient had rapid shallow breathing and a racing heart. She called her doctor senior internet sales consultant today who gave her steroids, which she took. She reports not worsening this evening, but did not want to have another night experiencing the SOB. Her PCP put her on 10 days of doxycycline but she has not been able to see a senior clinical data analyst yet. She is not on O2 at home. The patient rates the pain 0/10 in severity. Symptoms aggravated by nothing. Symptoms alleviated by nothing. Patient reports dry hacking cough with mild mucus. Patient denies fever. - History of Current Complaint Chief Complaint: EDShortnessOfBreath Time Seen by Provider: 09/28/18 19:45 Hx Obtained From: Patient Onset/Duration: Gradual Onset, Lasting Days - 4 days ago, Still Present, Worse Since Timing: Constant Dyspnea At: Exertion Aggravating Factors: Nothing Alleviating Factors: Nothing Associated Signs & Symptoms: Cough (Productive), Cough (Nonproductive) - Allergy/Home Medications Allergies/Adverse Reactions: Allergies Allergy/AdvReac Type Severity Reaction Status Date / Time Sulfa (Sulfonamide Allergy Unknown Verified 02/22/18 17:39 Antibiotics) Reaction Details Home Medications: Home Medications Acetaminophen [Tylenol Extra Strength] 500 mg PO Q4H PRN 09/28/18 [History Confirmed 09/28/18] guaiFENesin [Mucinex] 600 mg PO Q6H PRN 09/28/18 [History Confirmed 09/28/18] predniSONE TAB* [Deltasone 10 MG TAB*] 40 mg PO DAILY 09/28/18 [History Confirmed 09/28/18] PMH/Surg Hx/FS Hx/Imm Hx Respiratory History: Denies: Hx Asthma, Hx Chronic Obstructive Pulmonary Disease (COPD) Musculoskeletal History: Reports: Hx Back Problems - chronic Rt LBP, Hx Tendonitis - intermittent "tennis elbow" Denies: Hx Arthritis, Hx Bursitis, Hx Congenital Bone Abnormalities, Hx Fibromyalgia, Hx Gout, Hx Orthopedic Injury, Hx Osteoporosis, Hx Scoliosis, Other Musculoskeletal History Sensory History: Denies: Hx Contacts or Glasses, Hx Hearing Aid Opthamlomology History: Denies: Hx Contacts or Glasses Neurological History: Reports: Hx Migraine - 10yrs ago in [place] Denies: Hx Dementia, Hx Developmental Delay, Hx Headaches, Hx Nerve Disease, Hx Seizures, Hx Spinal Cord Injury, Hx Transient Ischemic Attacks (TIA), Other Neuro Impairments/Disorders Psychiatric History: Reports: Hx Anxiety, Hx Depression - Surgical History Surgery Procedure, Year, and Place: Denies Infectious Disease History: No Infectious Disease History: Denies: Hx Clostridium Difficile, Hx Hepatitis, Hx Human Immunodeficiency Virus (HIV), Hx of Known/Suspected MRSA, Hx Shingles, Hx Tuberculosis, History Other Infectious Disease, Traveled Outside the [place] in Last 30 Days - Family History Known Family History: Negative: Blood Disorder - Social History Alcohol Use: Rare Hx Substance Use: No Substance Use Type: Reports: None Substance Use Comment - Amount & Last Used: occasionally Hx Tobacco Use: No Smoking Status (MU): Never Smoked Tobacco Review of Systems Negative: Fever Positive: Shortness Of Breath, Cough - Dry, hacking All Other Systems Reviewed And Are Negative: Yes Physical Exam - Summary Physical Exam Summary: Appearance: Well-appearing, Well-nourished, lying in bed comfortable, mild distress Skin: Warm, dry, no obvious rash Eyes: sclera anicteric, no conjunctival pallor ENT: mucous membranes moist Neck: deferred Respiratory: fine crackles, tachypnea Cardiovascular: tachycardia, low O2 sat Abdomen: deferred Musculoskeletal: Moving all 4 extremities without obvious discomfort Neurological: Awake and alert, mentation is normal, speech is fluent and appropriate Psychiatric: affect is normal, does not appear anxious or depressed Triage Information Reviewed: Yes Vital Signs On Initial Exam: Initial Vitals Temp Pulse Resp BP Pulse Ox 97.9 F 123 22 139/89 87 09/28/18 19:40 09/28/18 19:40 09/28/18 19:40 09/28/18 19:40 09/28/18 19:40 Vital Signs Reviewed: Yes Diagnostics - Vital Signs Vital Signs Temp Pulse Resp BP Pulse Ox 09/28/18 19:40 97.9 F 123 22 139/89 87 - Laboratory Lab Statement: Any lab studies that have been ordered have been reviewed, and results considered in the medical decision making process. Course/Dx - Course Course Of Treatment: This patient is a 33 year old F presenting to ED with a chief complaint of SOB with exertion since four days ago worsening last night. She states she does not want to be admitted to the hospital and denies any blood work, CXR, or EKG. She states she just wanted to receive oxygen. I gave strict precautions that leaving without a work-up is against medical advice, but she denies wanting any testing. I discussed patient case with Dr. Delgado, senior clinical data analyst who stated she will see the patient on Sunday. I contacted [facility] to request giving the patient O2, however they are unable to provide O2 unless the patient is admitted and stable. Patient will be discharged home with dx of hypoxia and pneumonitis against medical advice. Patient understands and agrees with this plan. - Diagnoses Provider Diagnoses: Hypoxia, Pneumonitis - Physician Notifications Discussed Care of Patient With: Jessica Delgado Time Discussed With Above Provider: 19:58 Instructed by Provider To: Other - Discussed patient case with Dr. Delgado, senior clinical data analyst who stated she will see the patient on Sunday. Discharge - Sign-Out/Discharge Documenting (check all that apply): Patient Departure - Discharge Patient Received Moderate/Deep Sedation with Procedure: No - Discharge Plan Condition: Guarded Disposition: HOME Patient Education Materials: Pneumonitis (ED), Hypoxia (ED) Referrals: Samuel Boyd MD [Primary Care Provider] - Jessica Delgado MD [Medical Doctor] - 2 Days Additional Instructions: You have elected to leave the hospital against medical advice but that doesn't mean you can't come back if your symptoms are worsening. Rest over the weekend and take the steroids as ordered by your doctor, and if you feel like you're getting worse definitely come back. - Billing Disposition and Condition Condition: GUARDED Disposition: Home - Attestation Statements Document Initiated by Christina: Yes Documenting Scribe: Bob Chaudhry Provider For Whom Christina is Documenting (Include Credential): MD Yuniel Canelaibmacarena Attestation: I, Bob Chaudhry, scribed for Gabino Mccall MD on 09/28/18 at 2130. Scribe Documentation Reviewed: Yes Provider Attestation: The documentation as recorded by the Bob wolfe accurately reflects the service I personally performed and the decisions made by me, Gabino Mccall MD Status of Scribe Document: Viewed
--- OUTSIDE RECORDS SUMMARY | 2018-09-28 20:36 | XMS REPORT | Continuity of Care Document ---
:1985 External Reference #:[id number] Author Name Elsie Lora, AGUS Address [address] [facility] [place] [address] Care Team Providers Name Role Phone Samuel Boyd Care Team Information Corporate Law Assistant Unavailable Samuel Boyd Primary Care Physician Unavailable Payers Date Identification Numbers Payment Provider Subscriber Effective: 2016 Policy Number: [id number] /BS Of [facility] Sania Buenrostro Group Name: [employer] [address] [address] PayID: [id number] [place] [address] Problems Active Problems Provider Date Anxiety state Yung Gamez M.D. Onset: 01/20/2011 Generalized anxiety disorder Samuel Boyd M.D. Onset: 02/05/2015 Low back pain Samuel Boyd M.D. Onset: 01/09/2014 Family History Date Family Member(s) Observation Comments Father Unremarkable Mother Fibromyalgia Number of Siblings Siblings: 3 First Brother Lupus Second Brother Unremarkable First Sister Unremarkable Grandmother Breast Cancer in her 50's Paternal Grandfather due to Alzheimer's Disease () - 50's Text Input father is well2 bros and 1 sister all well Social History Type Date Description Comments Sex Unknown Marital Status Patient is single Living Situation Lives alone Diet Diet is healthy and well balanced Occupation safety and security manager Tobacco Use Start: Unknown Denies Tobacco Use ETOH Use Occasional Recreational Drug Use Denies Drug Use Tobacco Use Start: Unknown Nonsmoker Smoking Status Reviewed: 09/13/18 Nonsmoker Exercise Type/Frequency Exercises regularly Current Allergies, Adverse Reactions, Alerts Active Allergies Reaction Severity Comments Date Sulfa 12/14/2010 Medications Active Medications SIG Qnty Indications Ordering Date Provider Azithromycin 2 by mouth 6tabs J18.8 Jazz 09/10/2018 250mg Tablets every day x1 Jaret Knox then 1 by mouth every day x 4 more days Proair HFA 2 puffs every 4 8.500gm J18.8 Jazz 09/10/2018 108(90Base) hours as needed Jaret Knox mcg/Act Aerosol for cough/wheeze Cyclobenzaprine HCL Take 1 Tablet 30tabs M54.5 Elsie Clementine 08/26/2018 10mg By Mouth 3 Lora, COLLEGE SCOUTING COORDINATOR Tablets Times A Day as Needed For Spasm Oxycodone-Acetaminophen 1 by mouth 60tabs M54.5 Samuel Boyd, 04/08/2018 every 4-6 hours M.D. 5-325mg Tablets as needed for severe pain Diazepam 1/2 -1 daily as 30tabs Samuel Boyd, 5mg Tablets needed for M.D. anxiety History Medications Handicap Parking needs handicapped Samuel Boyd, 10/11/2017 - Permit sticker dx-low M.D. 04/08/2018 back pain and . Length of need 6 months Cipro 1 by mouth twice a 14tabs 599.0 Caroline 09/15/2014 - 500mg Tablets day x 7 days JASPREET Lott 02/04/2015 Diazepam 1-2 every day as Samuel Boyd, 01/09/2014 - 5mg Tablets needed anxiety M.D. 01/09/2014 Cyclobenzaprine HCL Take 1 Tablet By 30tabs M54.5 Samuel Boyd, 2013 - 10mg Mouth 3 Times A M.D. 04/08/2018 Tablets Day as Needed For Spasm Oxycodone-Acetaminophe 1 by mouth every 4 60tabs M54.5 Samuel Boyd, 05/2013 - n hours as needed M.D. 04/08/2018 5-325mg Tablets for severe pain Cyclobenzaprine HCL 1 by mouth three 30tabs 724.2 Veda Matthews, 2013 - 10mg times a day as COLLEGE SCOUTING COORDINATOR 12/29/2013 Tablets needed for spasm Pramosone apply to affected 30gm Jazz 06/18/2013 - 1-2.5% Cream area bid prn Abilio, 12/19/2013 Afnp-C Naproxen 1 po bid with food 60tabs 727.51 Veda Matthews, 03/03/2013 - 500mg Tablets [employer]LE[employer] SCOUTING COORDINATOR 06/18/2013 Clindamycin HCL 1 po tid x 10 days 30caps 782.9 Veda Matthews, 11/06/2012 - 150mg [employer]LEGE SCOUTING COORDINATOR 11/16/2012 Capsules Hydrocodone/Acetaminop 1 po q 4-6 hrs 20tabs 724.8 Maben 07/02/2012 - hen prn pain Kaylie, [facility] 11/25/2012 5-325mg Tablets Flexeril 1 po tid prn 30tabs 724.8 Maben 07/02/2012 - 10mg Tablets muscle spasm [facility], [facility] 11/25/2012 Hydrocodone/Acetaminop 1 po q 4-6 hrs 20tabs 724.8 Emily Fuentes, 2011 - hen prn pain Afnp-C 02/05/2012 5-325mg Tablets Flexeril 1 po tid prn 30tabs 724.8 Emily Fuentes, 02/06/2011 - 10mg Tablets muscle spasm Afnp-C 02/05/2012 Vicodin 1 tabs po q 4-6 10tabs 724.8 Emily Fuentes, 02/06/2011 - 5-500mg Tablets hs prn Afnp-C 02/14/2011 Tri-Sprintec take 1 tablet by 1pack Jazz - mouth once daily Abilio, 11/25/2012 0.18/0.215/0.25 mg-3 Afnp-C Tablets Immunizations CPT Code Status Date Vaccine Lot # [id number] Given 03/22/2017 Influenza vac quadrivalent preservative free 3yrs [id number] and up Vital Signs Date Vital Result Comment 09/13/2018 9:01am BP Systolic 142 mmHg BP Diastolic 70 mmHg BP Systolic Recheck 120 mmHg BP Diastolic Recheck 84 mmHg Heart Rate 124 /min Body Temperature 97.5 F Respiratory Rate 20 /min O2 % BldC Oximetry 82 % 72% with minimal exertion Height 64.5 inches 5'4.50" Weight 158.00 lb BMI (Body Mass Index) 26.7 kg/m2 09/10/2018 11:47am BP Systolic 128 mmHg BP Diastolic 60 mmHg Heart Rate 132 /min Body Temperature 97.9 F Respiratory Rate 20 /min O2 % BldC Oximetry 88 % Height 64.5 inches 5'4.50" Weight 158.12 lb BMI (Body Mass Index) 26.7 kg/m2 04/08/2018 5:28pm BP Systolic 120 mmHg BP Diastolic 78 mmHg Heart Rate 72 /min Body Temperature 97.9 F Respiratory Rate 16 /min Height 64.5 inches 5'4.50" Weight 175.00 lb BMI (Body Mass Index) 29.6 kg/m2 06/18/2017 10:01am BP Systolic 100 mmHg BP Diastolic 60 mmHg Heart Rate 80 /min Body Temperature 98.5 F Respiratory Rate 16 /min Height 64.5 inches 5'4.50" Weight 149.00 lb BMI (Body Mass Index) 25.2 kg/m2 02/15/2017 10:09am BP Systolic 110 mmHg BP Diastolic 70 mmHg Heart Rate 66 /min Body Temperature 97.9 F Height 64.5 inches 5'4.50" Weight 157.38 lb BMI (Body Mass Index) 26.6 kg/m2 07/25/2016 9:41am BP Systolic 104 mmHg BP Diastolic 62 mmHg Heart Rate 90 /min Body Temperature 97.9 F Respiratory Rate 16 /min Height 64.5 inches 5'4.50" Weight 152.50 lb BMI (Body Mass Index) 25.8 kg/m2 02/05/2015 1:41pm BP Systolic 110 mmHg BP Diastolic 66 mmHg Heart Rate 102 /min Body Temperature 98.3 F Respiratory Rate 16 /min Weight 152.00 lb 09/15/2014 11:06am BP Systolic 104 mmHg BP Diastolic 70 mmHg Heart Rate 96 /min Body Temperature 97.4 F Height 64.5 inches 5'4.50" measured 06/26/13 Weight 156.00 lb BMI (Body Mass Index) 26.4 kg/m2 01/09/2014 1:19pm BP Systolic 96 mmHg BP Diastolic 60 mmHg Heart Rate 96 /min Body Temperature 98.5 F Respiratory Rate 16 /min Height 64.5 inches 5'4.50" measured 06/26/13 Weight 155.00 lb BMI (Body Mass Index) 26.2 kg/m2 12/19/2013 1:48pm BP Systolic 122 mmHg BP Diastolic 78 mmHg Heart Rate 88 /min Body Temperature 98.0 F Respiratory Rate 15 /min Height 64.5 inches 5'4.50" measured 06/26/13 Weight 153.00 lb BMI (Body Mass Index) 25.9 kg/m2 06/26/2013 11:08am BP Systolic 100 mmHg BP Diastolic 64 mmHg Heart Rate 84 /min Body Temperature 98.6 F Respiratory Rate 16 /min Height 64.5 inches 5'4.50" measured 06/26/13 Weight 146.00 lb BMI (Body Mass Index) 24.7 kg/m2 Right Visual Acuity Distance 20/20 Left Visual Acuity Distance 20/20 06/18/2013 5:28pm BP Systolic 90 mmHg BP Diastolic 70 mmHg Heart Rate 80 /min Body Temperature 99.0 F Respiratory Rate 18 /min Height 65 inches 5'5" Weight 144.00 lb BMI (Body Mass Index) 24.0 kg/m2 03/03/2013 5:18pm BP Systolic 98 mmHg BP Diastolic 60 mmHg Heart Rate 72 /min Body Temperature 99.3 F Respiratory Rate 16 /min Height 65 inches 5'5" Weight 139.00 lb BMI (Body Mass Index) 23.1 kg/m2 11/25/2012 10:47am BP Systolic 107 mmHg BP Diastolic 70 mmHg Heart Rate 68 /min Body Temperature 99.0 F Respiratory Rate 16 /min Height 65 inches 5'5" Weight 132.00 lb BMI (Body Mass Index) 22.0 kg/m2 11/06/2012 4:38pm BP Systolic 110 mmHg BP Diastolic 60 mmHg Heart Rate 66 /min Body Temperature 99.0 F Respiratory Rate 16 /min Height 65 inches 5'5" Weight 130.50 lb BMI (Body Mass Index) 21.7 kg/m2 07/02/2012 8:36am BP Systolic 112 mmHg BP Diastolic 70 mmHg Heart Rate 84 /min Body Temperature 99.0 F Height 65 inches 5'5" Weight 133.00 lb BMI (Body Mass Index) 22.1 kg/m2 02/05/2012 10:04am BP Systolic 112 mmHg BP Diastolic 62 mmHg Heart Rate 68 /min Body Temperature 97.6 F Height 65 inches 5'5" Weight 133.00 lb BMI (Body Mass Index) 22.1 kg/m2 12/21/2011 4:08pm BP Systolic 110 mmHg BP Diastolic 80 mmHg Heart Rate 60 /min Body Temperature 98.7 F Height 65.5 inches 5'5.50" Weight 137.00 lb BMI (Body Mass Index) 22.4 kg/m2 02/06/2011 4:27pm BP Systolic 110 mmHg BP Diastolic 70 mmHg Heart Rate 76 /min Body Temperature 99.0 F Height 65.5 inches 5'5.50" Weight 146.00 lb BMI (Body Mass Index) 23.9 kg/m2 12/14/2010 1:18pm BP Systolic 118 mmHg BP Diastolic 78 mmHg Heart Rate 72 /min Body Temperature 98.6 F Height 65.5 inches 5'5.50" Weight 140.00 lb BMI (Body Mass Index) 22.9 kg/m2 Right Visual Acuity Distance 20/25 without correction Left Visual Acuity Distance 20/25 Results Test Date Facility Test Result H/L Range Note CBC Auto Diff 09/13/2018 [facility] White Blood Count 15.8 10^3/uL High 3.5- 10.8 Red Blood Count 4.41 10^6/uL N 3.70-4.87 Hemoglobin 13.1 g/dL N 12.0-16.0 Hematocrit 39 % N 35-47 Mean Corpuscular Volume 88 fL N 80-97 Mean Corpuscular Hemoglobin 30 pg N 27-31 Mean Corpuscular HGB Conc 34 g/dL N 31-36 Red Cell Distribution Width 14 % N 10-15 Platelet Count 443 10^3/uL N 150-450 Mean Platelet Volume 6.7 fL Low 7.4-10.4 Abs Neutrophils 12.5 10^3/uL High 1.5-7.7 Abs Lymphocytes 2.2 10^3/uL N 1.0-4.8 Abs Monocytes 0.7 10^3/uL N 0-0.8 Abs Eosinophils 0.3 10^3/uL N 0-0.6 Abs Basophils 0.0 10^3/uL N 0-0.2 Abs Nucleated RBC 0.0 10^3/uL Granulocyte % 79.4 % Lymphocyte % 13.9 % Monocyte % 4.3 % Eosinophil % 2.1 % Basophil % 0.3 % Nucleated Red Blood Cells % 0.0 Laboratory test finding 09/13/2018 [facility] Lactic Acid 1.1 mmol/L N 0.5-2.0 1 Comp Metabolic Panel 09/13/2018 [facility] Sodium 138 mmol/L N 135-145 Potassium 3.9 mmol/L N 3.5-5.0 Chloride 104 mmol/L N 101-111 Co2 Carbon Dioxide 22 mmol/L N 22-32 Anion Gap 12 mmol/L High 2-11 Glucose 125 mg/dL High 70-100 Blood Urea Nitrogen 13 mg/dL N 6-24 Creatinine 1.00 mg/dL High 0.51-0.95 BUN/Creatinine Ratio 13.0 N 8-20 Calcium 9.7 mg/dL N 8.6-10.3 Total Protein 8.0 g/dL N 6.4-8.9 Albumin 4.1 g/dL N 3.2-5.2 Globulin 3.9 g/dL N 2-4 Albumin/Globulin Ratio 1.1 N 1-3 Total Bilirubin 0.40 mg/dL N 0.2-1.0 Alkaline Phosphatase 104 U/L N 34-104 Alt 12 U/L N 7-52 Ast 25 U/L N 13-39 Egfr Non- 63.1 >60 Egfr 76.3 >60 2 Laboratory test finding 09/13/2018 [facility] Troponin I 0.01 ng/mL <0.04 3 HCG 0.95 mIU/mL 4 Arterial Blood Gas 09/13/2018 [facility] PH Arterial 7.47 High 7.35-7.45 Pco2 Arterial 32 mmHg Low 35-45 Po2 Arterial 66 mmHg Low 80-100 O2 Saturation Arterial 94.4 % N 94.0-98.0 Base Excess Arterial 0.3 mmol/L N -2.0-2.0 5 Hco3 Arterial 25.0 mmol/L N 19-31 Inr/Protime 09/13/2018 [facility] Inr 1.09 N 0.82-1.09 6 Laboratory test finding 09/13/2018 [facility] Partial Thrombo 28.8 seconds N 26.0-38.0 Time PTT D Dimer Quantitative 249 ng/mL High Less Than 230 7 B-Type Natriuretic Peptide BNP 51 pg/mL <=100 Laboratory test 07/08/2018 [facility] Cytology SEE RESULT BELOW 8, 9 finding Urine (Fma) 06/18/2017 [facility] Medicine SP Grav <=1.005 (607)- - Urine, (Fma/CMC/CTX) POS # Laboratory test 03/22/2017 [facility] Antinuclear Negative 10, [address] Antibodies, [place] [address] (607)- - Estrogens, Total 222 pg/mL 12 Laboratory test finding 03/22/2017 Reese Татьяна(fma) TSH 0.84 mIU/L 0.50-6.00 Free T4 0.91 ng/dL 0.75-1.54 Complete Blood Count 03/22/2017 Reese Татьяна(fma) WBC 5.5 x10^3/UL 3.6 -9.6 RBC 4.20 x10^6/UL 3.90-5.70 HGB 13.1 g/dL 12.1-17.2 HCT 38 % 36-50 MCV 91.0 fL 82.2-97.4 MCH 31.2 pg 27.6-33.3 MCHC 34.2 g/dL 33.0-35.5 RDW 14.1 % High 11.6-13.7 PLT 245 x10^3/UL 150-400 MPV 7.4 fL 7.4-10.4 Gran # 4.3 x10^3/UL 1.5-7.2 Lymph# 1.1 x10^3/UL 0.7-4.9 Mineral# 0.1 x10^3/UL 0.1-0.9 Gran % 77.2 % High 42.2-75.2 Lymph % 20.1 % Low 20.5-51.1 Mineral% 2.7 % 1.7-9.3 FSH, Serum 03/22/2017 [facility] FSH 2.4 mIU/mL 13 [address] [place] [address] (607)- - Iron And Tibc 03/22/2017 [facility] Iron 324 g/dL 858-183 [address] [facility] Bind.[place] [address] ) (607)- - Uibc 209 g/dL 131-425 Iron, Serum 115 g/dL 27-159 Iron Saturation 35 % 15-55 Laboratory test 03/22/2017 [facility] Luteinizing 4.6 mIU/mL 14 finding [address] [facility] Hormone(LH), [place] [address] (453)- - Progesterone 3.4 ng/mL 15 Laboratory test 03/22/2017 [facility] HIV 1&2 neg Negative finding (607)- - Antibody Screen (Fma) Laboratory test 03/22/2017 [facility] RPR Non Reactive Non Reactive finding [address] [place] [address] (607)- - Hepatitis Panel 03/22/2017 [facility] Hep A Ab, Positive Abnormal Negative (5) [address] [facility] [place] [address] (607)- - HBsAg Screen Negative Negative Hep B Core Ab, Tot Negative Negative Hep B Surface Ab, Qual Reactive 16 Hep C Virus Ab 0.1 s/coratio 0.0-0.9 17 Nuswab VG+, HSV 02/15/2017 [facility] Atopobium vaginae Moderate - 1 18 [address] [facility] [place] [address] (603)- - Bvab 2 Low - 0 Score Megasphaera 1 Low - 0 Score 19 Pily albicans, Zohreh Positive Abnormal Negative Pily glabrata, Zohreh Negative Negative 20 Trich vag by Zohreh Negative Negative Chlamydia trachomatis, Zohreh Negative Negative Neisseria gonorrhoeae, Zohreh Negative Negative HSV 1 Zohreh Negative Negative HSV 2 Zohreh Negative Negative Thinprep/HPV(W/History) 02/15/2017 [facility] HPV, Negative Negative 21, [address] [facility] [address] [place] [address] High (607)- - 16/18,45 Pap Smear 02/15/2017 [facility] Diagn See 23 [address] [facility] Comment: [place] [address] (607)- - Adeq See Comment: 24 [email or web address] See Comment: 25 Perfor See Comment: 26 Comm . Note See Comment: 27 Iglbp See Comment: 28 Laboratory test 02/15/2017 [facility] PDF [id number] SEE IMAGE finding [address] [place] [address] (607)- - Ua - Micro (Fma) 09/15/2014 [facility] Appearance CLEAR (607)- - Color YELLOW Glucose, Urine (Fma/CMC/CTX) NEG Bilirubin NEG Ketones NEG SP Grav <=1.005 Blood MOD # PH 5.5 Protein NEG Urobil 0.2 Nitrite NEG Leukocytes (Fma/CMC/[facility]) LARGE # Hyaline - /Lpf Granular - /Lpf WBC (Fma,[facility]) >100 # RBC 2-3 # Mucus - /Lpf Epith RARE /Lpf # Bacteria 1-2+ /Hpf # Amorphous - /Lpf Crystals, Fluid (Fma/CMC/CTX) - Z#Comments - Ua - Micro (Fma) 06/26/2013 [facility] Appearance yellow (607)- - Color clear Glucose neg Bilirubin neg Ketones neg SP Grav 1.020 Blood neg PH 5.5 Protein neg Urobil 0.2 Nitrite neg Leukocytes (Fma/CMC/[facility]) small # Hyaline - /Lpf Granular - /Lpf WBC (Fma,[facility]) 5-10 # RBC 0-2 # Mucus - /Lpf Epith mod amt /Lpf # Bacteria rare /Hpf # Amorphous - /Lpf Crystals, Fluid (Fma/CMC/CTX) - Z#Comments - Ua - Non Micro (Fma) 06/18/2013 [facility] Appearance clear (607)- - Color yellow Glucose neg Bilirubin neg Ketones neg SP Grav 1.020 Blood neg PH 6.0 Protein neg Urobil 0.2 Nitrite neg Leukocytes (Fma/CMC/[facility]) neg Laboratory test 06/18/2013 [facility] Thin Prep SEE NOTE 29 finding 28 [facility] W/HPV(Lsil/JOHNIE/Asc) [place] [address] [phone] Chlamydia/GC 06/18/2013 [facility] Chlamydia/GC, Zohreh SEE BELOW 30 Aptima 28 [facility] Endocerv/[place] [address] [phone] Source- Endocerv/Vag Swab * Chlamydia Trachomatis,Zohreh Negative Negative 31 Neisseria Gonorrhoeae,Zohreh Negative Negative 32 Please Note: SEE BELOW 33 Vaginitis Dna 06/18/2013 [facility] Screen Trichomonas NEGATIVE Affirm 28 [facility] Vaginalis Dna [place], [place] [id number] [phone] Screen Gardnerella Vaginalis Dna NEGATIVE Screen Pily Species Dna NEGATIVE Laboratory test 06/18/2013 [facility] Wet Prep see comment 34 finding (607)- - (Fma,CMC,CX) Laboratory test 03/03/2013 Reese Татьяна(a) Ferritin 20 ng/mL 6-115 finding Iron/Tibc,%Sat 03/03/2013 [facility] Iron 66 g/dL 30-158 35 Group [address] [place] [address] [phone] Total Iron Binding Cap. 348 g/dL 250-450 % Iron Saturation 19.0 % 13.0-45.0 CBC Electronic (a) 03/03/2013 [facility] WBC 6.4 3.6-9.6 (607)- - RBC 4.07 3.90-5.70 Hemoglobin (Fma/CMC/CTX) 12.8 g/dL 12.1 - 17.2 Hematocrit (Fma/CMC/CTX) 37.0 % 36.1 - 50.3 Platelets 231 10^3/ul 150-400 Lymph% 29.5 20.5-51.1 Mixed% 4.0 Neutrophils % 66.5 Mean Corpuscular Vol 91 82.2-97.4 Mean Corpuscular Hemoglobin 31.5 27.6-33.3 Mean Corpuscular Hemo Concen 34.6 32.0-36.0 RDW 13.1 11.6-13.7 Mean Platelet Volume 6.7 6.5-11.0 Laboratory test 03/03/2013 [facility] Sed Rate (a/CMC/[facility]) 3mm finding (607)- - Chavez Pattern & Titer 03/03/2013 [facility] Speckled Pattern 1:80 [address] [place] [address] [phone] Note: SEE NOTE 36 Laboratory test 03/03/2013 [facility] Rheumatoid Arth 7.4 IU/mL 0.0-13.9 finding 28 [place], [place] [address] [phone] Antinuclear Abs, Ifa See patterns 37 Laboratory test 11/25/2012 [facility] Sed Rate 55 mm # finding (607)- - (Fma/CMC/[facility]rex) Ua - Micro (a) 11/25/2012 [facility] Medicine Appearance slt cloudy (607)- - Color yellow Glucose - Bilirubin - Ketones trace # SP Grav 1.015 Blood - PH 0.2 Protein - Urobil - Nitrite - Leukocytes (Fma/CMC/[facility]) - Hyaline - /Lpf Granular - /Lpf WBC (Fma,[facility]) 10-15 # RBC 1-3 Mucus sm amt /Lpf Epith few /Lpf Bacteria trace /Hpf Amorphous - /Lpf Crystals, Fluid (Fma/CMC/CTX) - Z#Comments - CBC Electronic (a) 11/25/2012 [facility] Medicine WBC 12.6 High 3.6-9.6 (607)- - RBC 3.56 Low 3.90-5.70 Hemoglobin (Fma/CMC/CTX) 10.9 g/dL Low 12.1 - 17.2 Hematocrit (Fma/CMC/CTX) 32.4 % Low 36.1 - 50.3 Platelets 340 10^3/ul 150-400 Lymph% 13.8 Low 20.5-51.1 Mixed% 3.7 Neutrophils % 82.5 Mean Corpuscular Vol 91 82.2-97.4 Mean Corpuscular Hemoglobin 30.6 27.6-33.3 Mean Corpuscular Hemo Concen 33.6 32.0-36.0 RDW 11.5 Low 11.6-13.7 Mean Platelet Volume 6.6 6.5-11.0 Comprehensive Metabolic 11/25/2012 Reese Татьяна([facility]) Albumin 3.7 g/dL Low 3.8-5.5 38 Prof Alk. Phos. 78 U/L 30-110 Alt (SGPT) 22 U/L 7-35 Ast (Sgot) 22 U/L 5-34 BUN 12 mg/dL 6-26 Calcium 9.3 mg/dL 8.6-10.2 Chloride 104 mEq/L 94-112 Creatinine 1.1 mg/dL 0.6-1.4 Carbon Dioxide 26 mEq/L 21-32 Glucose 82 mg/dL 70-105 Sodium 141 mEq/L 134-149 Total Bilirubin 0.3 mg/dL 0.2-1.3 Total Protein 6.4 g/dL 6.3-8.1 Potassium 4.1 mEq/L 3.6-5.5 Globulin 2.7 g/dL 2.0-4.8 A/G Ratio 1.4 Calc 0.6-2.3 BUN/Creat Ratio 11.5 Calc 8.0-36.0 Lyme Igg/M 11/25/2012 [facility] Lyme IgG/IgM <0.91 index 0.00-0.90 39 W/RFX [address] [address] [phone] Lyme Disease Ab, Quant, IgM <0.91 index 0.00-0.90 40 Ua - Micro (Fma) 02/05/2012 [facility] Medicine Appearance CLEAR (607)- - Color YELLOW Glucose NEG Bilirubin NEG Ketones NEG SP Grav 1.030 Blood TRACE-INTACT # PH 5.5 Protein NEG Urobil 0.2 Nitrite NEG Leukocytes (Fma/CMC/[facility]) TRACE # WBC (Fma,[facility]) 1-3 # RBC 1-3 # Mucus MED AMT /Lpf # Epith FEW /Lpf # Bacteria TRACE /Hpf # Anti Viral AB 02/05/2012 [facility] HIV 1/O/2 <1.00 <1.00 41 Screen 28 [facility] [place] [address] [phone] HIV 1/O/2 Abs, Qual Non Reactive 42 Chlamydia/GC 02/05/2012 [facility] Chlamydia/GC, Zohreh SEE BELOW 43 [address] [facility] Endocerv/[place] [address] [phone] Source- Endocerv/Vag Swab * Chlamydia Trachomatis,Zohreh Negative Negative 44 Neisseria Gonorrhoeae,Zohreh Negative Negative 45 Please Note: SEE BELOW 46 Laboratory test 02/05/2012 [facility] Thin Prep SEE NOTE 47 finding 28 [facility] W/HPV(Lsil/JOHNIE/Asc) [place] [address] [phone] Ua - Micro 12/14/2010 [facility] Appearance YELLOW (Fma) (607)- - Color CLEAR Glucose NEG Bilirubin NEG Ketones NEG SP Grav 1.015 Blood NEG PH 5.5 Protein NEG Urobil 0.2 Nitrite NEG Leukocytes (Fma/CMC/[facility]) SMALL # Hyaline - /Lpf Granular - /Lpf WBC (Fma,[facility]) 30-35 # RBC 0-2 # Mucus 1 /Lpf # Epith LARGE AMOUNT /Lpf # Bacteria TRACE /Hpf # Amorphous - /Lpf Crystals, Fluid (Fma/CMC/CTX) - Z#Comments - 1 [place] Severe Sepsis and Septic Shock Management Bundle Measure requires all lactic acids initially measuring >2.0 mmol/L be repeated. 2 Because ethnic data is not always readily available, this report includes an eGFR for both -Americans and non- Americans. The National Kidney Disease Education Program (NKDEP) does not endorse the use of the MDRD equation for patients that are not between the ages of 18 and 70, are , have extremes of body size, muscle mass, or nutritional status, or are non- or non-. According to the National Kidney Foundation, irrespective of diagnosis, the stage of the disease is based on the level of kidney function: Stage Description GFR(mL/min/1.73 m(2)) 1 Kidney damage with normal or decreased GFR 90 2 Kidney damage with mild decrease in GFR 60-89 3 Moderate decrease in GFR 30-59 4 Severe decrease in GFR 15-29 5 Kidney failure <15 (or dialysis) 3 Troponin-I testing on Plasma Separator Tubes (PST) has a known false positive rate of 0.20-0.40%. All positive troponins reflex immediately to secondary confirmatory testing. Using the [employer] DxI 800 Access Immunoassay systems, the 99th percentile upper reference limit was demonstrated to be < 0.03 ng/mL. 4 <5.0 Negative 5.0 - 25.0 Indeterminate (Repeat testing recommended after 72 hours) >25.0 Positive Perimenopausal women can display HCG levels of up to 20 mIU/mL 5 Reference ranges based on room air. 6 Standard intensity warfarin therapeutic range: 2.0-3.0 High intensity warfarin therapeutic range: 2.5-3.5 7 Please note: The following may produce a false positive D Dimer test: - Rheumatoid factor greater than 60 IU/ml - Plasma hemoglobin greater than 0.05 gm/dl - Bilirubin greater than 50 mg/dl - Lipids greater than 1000 mg/dl - FDP greater than 20 ug/ml 8 [id number] SEE RESULT BELOW Name: SANIA DIAZ : [address]: Debbie Gutierrez MD Acct: [id number] Unit: [id number] AGE: 33 Location: [facility] Re07/08/18 SEX: F Status: REG REF SPEC: [id number] WALTER: 07/08/18-[address] [facility] [address]: Debbie Gutierrez MD REQ: [id number] RECD: 07/08/18 STATUS: DEVONTE BERMUDEZ DR: Samuel Boyd MD _ ORDERED: TP IMAGE ANALYS, HPV/Thin Prep COMMENTS: [id number] Negative for Intraepithelial lesion or Malignancy Date Time Test Result Flag (u) Normal Range 07/08/18 1159 @ HPV RNA Negative Negative @ @ The high-risk HPV types detected by the assay include: 16, @ 18, 31, 33, 35, 39, 45, 51, 52, 56, 58, 59, 66, and 68. A. Ectocervical/Endocervical Specimen Adequacy: Satisfactory of evaluation Transformation zone component identified Patient Information: HPV: High risk HPV RNA testing regardless of pap results. Actual Specimen Date: 07/08/18 Last Menstrual Date: 05/17/17 Signed by and Reported on: GAGAN Perez (ASCP) [id number] This Pap test was evaluated with the assistance of the ThinPrep Test Imaging System. Due to cytologic findings at the data analytics chief scientist microscope, comprehensive manual rescreening by a Consumer Insight Analyst may be required. The Pap Smear is a screening test designed to aid in the detection of premalignant and malignant conditions of the uterine cervix. It is not a diagnostic procedure and should not be used as the sole means of detecting cervical cancer. Both false- positive and false- negative reports do occur. Depending on your risk status, a Pap smear should be obtained and evaluated every 1-3 years. END OF REPORT DEPARTMENT OF PATHOLOGY, [address] [place] [address] Giovani Bee M.D. Director [facility] # [id number] 10 3SST 11 Negative <1:80 Borderline 1:80 Positive >1:80 12 Prepubertal <40 Female Cycle: 1-10 Days 61 - 394 11-20 Days 122 - 437 21-30 Days 156 - 350 Post-Menopausal <40 [facility] Treatment for Ovulation Induction: 400 - 800 13 Adult Female: Follicular phase 3.5 - 12.5 Ovulation phase 4.7 - 21.5 Luteal phase 1.7 - 7.7 Postmenopausal 25.8 - 134.8 14 Adult Female: Follicular phase 2.4 - 12.6 Ovulation phase 14.0 - 95.6 Luteal phase 1.0 - 11.4 Postmenopausal 7.7 - 58.5 15 Follicular phase 0.1 - 0.9 Luteal phase 1.8 - 23.9 Ovulation phase 0.1 - 12.0 First trimester 11.0 - 44.3 Second trimester 25.4 - 83.3 Third trimester 58.7 - 214.0 Postmenopausal 0.0 - 0.1 16 Non Reactive: Inconsistent with immunity, less than 10 mIU/mL Reactive: Consistent with immunity, greater than 9.9 mIU/mL 17 Negative: < 0.8 Indeterminate: 0.8 - 0.9 Positive: > 0.9 The CDC recommends that a positive HCV antibody result be followed up with a HCV Nucleic Acid Amplification test (564734). 18 1 orange aptima tube 19 Calculate total score by adding the 3 individual bacterial vaginosis (BV) marker scores together. Total score is interpreted as follows: Total score 0-1: Indicates the absence of BV. Total score 2: Indeterminate for BV. Additional clinical data should be evaluated to establish a diagnosis. Total score 3-6: Indicates the presence of BV. This test was developed and its performance characteristics determined by [facility]. It has not been cleared or approved by the Food and Drug Administration. The FDA has determined that such clearance or approval is not necessary. 20 This test was developed and its performance characteristics determined by [facility]. It has not been cleared or approved by the Food and Drug Administration. The FDA has determined that such clearance or approval is not necessary. 21 Source.............Endocervix LMP / Prev Treat...LEM=[id number] Dates / Results....normal No. of containers..01 ThinPrep Vial [id number] 22 This test detects fourteen high-risk HPV types (16/18/31/33/35/39/45/ 51/52/56/58/59/66/68) without differentiation. 23 NEGATIVE FOR INTRAEPITHELIAL LESION AND MALIGNANCY. 24 Satisfactory for evaluation. Endocervical and/or squamous metaplastic cells (endocervical component) are present. 25 Z12.4 26 Nemo Headley, Consumer Insight Analyst (ASCP) 27 The Pap smear is a screening test designed to aid in the detection of premalignant and malignant conditions of the uterine cervix. It is not a diagnostic procedure and should not be used as the sole means of detecting cervical cancer. Both false-positive and false-negative reports do occur. 28 This liquid based ThinPrep(R) pap test was screened with the use of an image guided system. 29 [employer] DEPARTMENT OF PATHOLOGY or Extension 6874 SAFETY ADMIN ASSISTANT CYTOLOGY REPORT Patient: SANIA SPARKS : 1985 AGE: 28 Y SEX: F Acct: [id number] Procedure Date: 06/18/2013 Date Received: 06/20/2013 Requesting Provider: JAZZ KNOX NP Location: [facility] – [place] Case No. [id number] Requisition #: [id number] CYTOLOGIC INTERPRETATION: SPECIMEN ADEQUACY SATISFACTORY FOR EVALUATION, ENDOCERVICAL TRANSFORMATION ZONE COMPONENT PRESENT GENERAL CATEGORIZATION NEGATIVE FOR INTRAEPITHELIAL LESIONS OR MALIGNANCY RECOMMENDATIONS Refer to the corresponding web sites for 2012 updated general recommendation guidelines of [place]. preventive service task force for cervical cancer screening, and www.asccp.org//jpbexbsds0645. COMMENTS Thin Prep Pap tests are examined with an FDA approved location-guidance system. PATIENT DATA: SPECIMEN SUBMITTED: * * (HPVII) THIN PREP W/HPV (LSIL/ASC/JOHNIE) * * ENDOCERVICAL RELEVANT HISTORY: LMP: 05/30/2013 Prev.normal: 2011 ADDITIONAL COPIES SENT TO: Screened/Rescreened Electronically Signed Sign Out Date/Time: by: by: GAGAN GUTIERREZ(ASCP) 06/23/2013 07:10 Note: The Pap smear is a screening test designed to aid in the detection of premalignant and malignant conditions of the uterine cervix. It is not a diagnostic procedure and should not be used as the sole means of detecting cervical cancer. Both false-positive and false-negative reports do occur. 00 UA Pap Smear performed at [place] Dir: Carmina Recio MD, [address] [facility] [address] 01 remedial reading teacher [facility] [place] Dir: Jay Jay Bradford MD, [address] [facility] [address] 02 [facility] [place] Dir: Walter Fischer MD, [address] [facility] [address] For inquiries regarding HPV test results, the physician may contact Lab [facility]: [phone] . 30 1 affirm swab; 1 gen probe swab 31 RN[facility] [place] [address] [facility] [phone] 32 RN[facility] [address] [phone] 33 Acceptable specimens for this test are male urethral swab, endocervical swab and liquid based pap specimens, vaginal swabs in APTIMA transports and first void urine. See online Directory of Services for test number for rectal and pharyngeal specimens. [facility] [place] [address] [facility] [phone] 34 epis, no wbc's or clue cells, no yeast or trich, neg guillaume whiff 35 2 SST 36 A positive CHAVEZ result may occur in healthy individuals or be associated with a variety of diseases. See interpre- tation below: Pattern Antigen Detected Suggested Disease Association Homogeneous DNA(ds,ss,), High titers - SLE (Smooth) Histone Speckled Sm, TOOL MACHINIST, SCL-70, SLE,MCTD,Scleroderma,Sjogrens SS-A/SS-B Nucleolar SCL-70, PM-1/SCL High titers Scleroderma Poly- myositis/Scleroderma Overlap Centromere Centromere PSS w/Crest syndrome variable 37 Negative <1:80 Borderline 1:80 Positive >1:80 38 RESULT KEITH'D 39 Negative <0.91 Equivocal 0.91 - 1.09 Positive >1.09 Note: The CDC currently advises that Western blot testing be performed following all equivocal or positive EIA results. Final diagnosis should include appropriate clinical findings and a positive EIA which is also positive by Western blot. 40 Negative <0.91 Equivocal 0.91 - 1.09 Positive >1.09 Note: IgM levels may peak at 3-6 weeks post infection, then gradually decline. FDA currently advises that Western Blot testing be performed following all equivocal or positive EIA results. Final diagnosis should include appropriate clinical findings and a positive EIA which is also positive by Western Blot. 41 Index Value: Specimen reactivity relative to the negative cutoff. 42 Negative: Non-reactive by ICMA Positive: Repeatedly reactive by ICMA. Refer to Western Blot confirmatory test for final interpretation. . Physician should student support counselor the patient about result significance. Patient information should be kept strictly confidential. 43 1 SST 44 [facility] [place] [address] [facility] [phone] 45 [facility] [place] [address] [facility] [phone] 46 Acceptable specimens for this test are male urethral swab, endocervical swab and liquid based pap specimens, vaginal swabs in APTIMA transports and first void urine. See online Directory of Services for test number for rectal and pharyngeal specimens. [facility] [place] [address] [facility] [phone] 47 [employer] DEPARTMENT OF PATHOLOGY or Extension 6196 SAFETY ADMIN ASSISTANT CYTOLOGY REPORT PATIENT: SANIA SPARKS : 1985 AGE: 27 Y SEX: F ACCT: [id number] PROCEDURE DATE: 02/05/2012 DATE RECEIVED: 02/06/2012 REQUESTING PHYSICIAN: JAZZ KNOX NP LOCATION: [facility] – [place], [place] Case No. [id number] PATIENT DATA: [id number] SPECIMEN SUBMITTED: * * (HPVII) THIN PREP W/HPV (LSIL/ASC/JOHNIE) * * CERVICAL/ENDOCERVICAL RELEVANT HISTORY: LMP: 01/12/2012 Prev.normal: 2009 SPECIMEN ADEQUACY SATISFACTORY FOR EVALUATION, ENDOCERVICAL TRANSFORMATION ZONE COMPONENT PRESENT GENERAL CATEGORIZATION NEGATIVE FOR INTRAEPITHELIAL LESIONS OR MALIGNANCY INTERPRETATION/ RESULT REACTIVE CELLULAR CHANGES. RECOMMENDATIONS Follow-up as clinically indicated. COMMENTS Thin Prep Pap tests are examined with an FDA approved location-guidance system. ADDITIONAL COPIES SENT TO: Screened/Rescreened Electronically Signed Sign Out Date/Time: by: by: WAI TOWNSEND MD 02/07/2012 15:09 PATHOLOGIST Note: The Pap smear is a screening test designed to aid in the detection of premalignant and malignant conditions of the uterine cervix. It is not a diagnostic procedure and should not be used as the sole means of detecting cervical cancer. Both false-positive and false-negative reports do occur. 00 UA Pap Smear performed at [place] Dir: Carimna Recio MD, [address] [facility] [address] 01 remedial reading teacher [facility] [place] Dir: Jay Jay Bradford MD, [address] [facility] [address] 02 [facility] [place] Dir: Walter Fischer MD, [address] [facility] [address] For inquiries regarding HPV test results, the physician may contact [facility]: [phone] "" Procedures Date Code Description Status 09/13/2018 21672 Pulse Oximetry Completed 09/13/2018 82642 Electrocardiogram Complete Completed 09/10/2018 81035 Pulse Oximetry Completed 09/10/2018 50908 Nebulizer Treatment Completed 06/26/2013 73448 Vision Test- screening test of visual acuity, Completed quantitative, bila Encounters Type Date Location Provider Dx Diagnosis Office Visit 09/10/2018 Main Office Jazz Knox, J18.8 Other pneumonia, 11:30a Afnp-C unspecified organism Office Visit 04/08/2018 Main Office Elsie Spring M54.5 Low back pain 6:15p AGUS Lora F41.1 Generalized anxiety disorder Office Visit 06/18/2017 10:00a Main Office Samuel Boyd, N91.1 Secondary M.D. amenorrhea F41.1 Generalized anxiety disorder M54.5 Low back pain Z32.01 Encounter for test, result positive Office Visit 02/15/2017 10:00a Main Office Caroline N94.6 Dysmenorrhea, Kaylie, PRODUCTION POSTING CLERK unspecified Z11.3 Encntr screen for infections w sexl mode of transmiss Z01.411 Encntr for obstetrics gyn exam (general) (routine) w abnormal findings Office Visit 07/25/2016 9:20a Main Office Samuel Boyd, Z00.00 Encntr for general M.D. adult medical exam w/o abnormal findings F41.1 Generalized anxiety disorder M54.5 Low back pain Office Visit 02/05/2015 1:40p Main Office Samuel Boyd, F41.1 Generalized anxiety M.D. disorder M54.5 Low back pain Office Visit 09/15/2014 10:45a [facility] Office [place] 599.0 UTI Urinary Kaylie, PRODUCTION POSTING CLERK Tract Infection Site Not Spec Office Visit 01/09/2014 1:20p Main Office Samuel Boyd, 300.00 Anxiety State M.D. Unspec 724.2 Lumbago Office Visit 12/19/2013 1:45p Main Office Veda Matthews, 724.2 Lumbago COLLEGE SCOUTING COORDINATOR Office Visit 06/26/2013 11:00a [facility] Office Barragan A. V70.0 Examination Jonas Gamez General Medical Routine AT Health Care Facility 300.00 Anxiety State Unspec 791.7 Cells & Casts In Urine Other V72.0 Examination Eyes & Vision Office Visit 06/18/2013 5:30p Main Office Jazz Knox V72.31 Routine Product Specialist Afnp-C Examination 623.8 Vaginal Disorder Noninflammatory Spec Other 569.49 Rectum & Anus Disorder Other v72.31 Routine Product Specialist Examination Office Visit 03/03/2013 5:15p Main Office Veda Matthews, COLLEGE SCOUTING COORDINATOR 727.51 Cyst Synovial Popliteal Space 285.9 Anemia Unspec Office Visit 11/25/2012 Main Office Jazz 780.60 Fever, Unspecified 10:30a Abilio, Afnp-C Office Visit 11/06/2012 Main Office Veda Matthews, 782.9 Skin & 4:30p COLLEGE SCOUTING COORDINATOR Integumentary Tissue Other Symptoms Office Visit 07/02/2012 [facility] Caroline 720.2 Sacroiliitis Not 8:30a Office Kaylie, PRODUCTION POSTING CLERK Elsewhere Classified Office Visit 02/05/2012 Main Office Jazz V72.31 Routine Product Specialist 10:00a Abilio, Examination Afnp-C 300.02 Anxiety Disorder Generalized V76.2 Screening Malignant Neoplasm Cervix V74.5 Screening Examination Venereal Disease V73.89 Screening Examination Viral Diseases Other Spec V25.01 Oral Contraceptive Prescription Office Visit 12/21/2011 4:00p Main Office Emily Fuentes, 724.8 Back Symptoms Afnp-C Other Office Visit 02/06/2011 4:30p Main Office Emily Fuentes 724.8 Back Symptoms Afnp-C Other Office Visit 12/14/2010 1:10p [facility] Office Yung España V70.0 Examination Jonas Gamez General Medical Routine AT Health Care Facility V77.91 Screening For Lipoid Disorders 346.80 Migraine Other W/O Intractable 300.00 Anxiety State Unspec 791.7 Cells & Casts In Urine Other Plan of Treatment 09/13/2018 - Elsie Lora, NPR06.02 Shortness of breathComments:patient driven to the Emergency Room by koobvhfxW83.02 OdeonxuvdJ06.9 Problem related to housing and economic circumstances, unspecifiedComments:insurance has high deductible and cost was a limiting factor and delayed treatment of patient from previous visit - labs were not completed, CT was not completed due to high costsAllComments:Medication Management Patient Understands medications he 's taking? Yes No Are there Barriers to Adherence? Yes No Has the patient been asked about herbal supplements and therapies, andOTC meds? Yes No Care Plan1. Patient has been queried about patient's goals/ preferences and functional/lifestyle goals at relevant visits. If relevant, describe: na2. Treatment goals as explained to the patient: above3. Are there barriers to meeting treatment goals? Yes No If Yes, please describe: financial 4. Self-Management goals as described to the patient: Yes NoAs always, we strongly encourage a healthy diet and making physical activity a part of your every day life. If you have questions about how or where to start, please contact the office.
[2018-09-28 21:16] VITALS: BP 128/91
== END 2018-09-28 21:14 | disposition home or self-care (01) ==
LOC: ED 19:38
DX: J18.9 Pneumonia, unspecified organism (principal); R09.02 Hypoxemia; Z88.2 Allergy status to sulfonamides
CPT/HCPCS: 99283